=== PATIENT | female | born 1955 | race Caucasian/White ===

== ENCOUNTER 2017-03-26 20:17 | Outpatient (CLI) | payer MEDICARE, OTHER | END 2017-03-27 07:00 | disposition home or self-care (01) | LOC: SLEEP 20:17 | PROVIDERS: ATTEND Family Medicine | DX: G47.33 Obstructive sleep apnea (adult) (pediatric) (principal); I48.0 Paroxysmal atrial fibrillation; G47.61 Periodic limb movement disorder | CPT/HCPCS: 95811 ==

== ENCOUNTER 2019-02-15 17:26 | Emergency (ER) | payer MEDICARE, OTHER ==
[~2019-02-15] VITALS: Ht 167.6 cm; Wt 75.7 kg
[2019-02-15] MEDS ORDERED: Cinnamon (17:50)
[2019-02-15] MEDS ORDERED: DILT240C53 (17:50)
[2019-02-15] MEDS ORDERED: DULO60CA59 (17:50)
[2019-02-15] MEDS ORDERED: MONT10TA24 (17:50)
[2019-02-15] MEDS ORDERED: LTH450TCR (17:50)
[2019-02-15] MEDS ORDERED: Calcium (17:50)
[2019-02-15] MEDS ORDERED: HYDR25TA4 (17:50)
[2019-02-15] MEDS ORDERED: ASPI-999 PO (17:50)
[2019-02-15] MEDS ORDERED: LORazepam INJ 2 MG/ML (ATIVAN) VIAL IVP STA (17:51)
[2019-02-15] MEDS ORDERED: ZOLP10TA5 (17:51)
[2019-02-15] MEDS ORDERED: ALPR0.5T7 (17:51)
[2019-02-15 18:03] LABS: BASOPHILS % (AUTO) 1 % (0-10); EOSINOPHILS % (AUTO) 5 % (0-10); HEMATOCRIT 36 % (35-52); HEMOGLOBIN 11.4 G/DL (11.5-16.0); LYMPHOCYTES % (AUTO) 24 % (12-44); MEAN CORPUSCULAR HEMOGLOBIN 29 PG (25-34); MEAN CORPUSCULAR HGB CONC 32 G/DL (32-36); MEAN CORPUSCULAR VOLUME 89 FL (80-99); MEAN PLATELET VOLUME 9.4 FL (7.4-10.4); MONOCYTES % (AUTO) 7 % (0-12); NEUTROPHILS # (AUTO) 8.2 X 10^3 (1.8-7.8); NEUTROPHILS % (AUTO) 63 % (42-75); PLATELET COUNT 401 10^3/uL (130-400); RED CELL DISTRIBUTION WIDTH 14.5 % (10.0-14.5)
[2019-02-15 18:04] LABS: BASOPHILS # (AUTO) 0.1 10^3/uL (0.0-0.1); EOSINOPHILS # (AUTO) 0.6 10^3/uL (0.0-0.3); LYMPHOCYTES # (AUTO) 3.2 X 10^3 (1.0-4.0); MONOCYTES # (AUTO) 0.9 X 10^3 (0.0-1.0)
--- NOTE | 2019-02-15 18:04 | ED General ---
General Chief Complaint: General Problems/Pain Stated Complaint: NAUSEA; HEADACHE; WEAKNESS Source of Information: Patient, Spouse History of Present Illness Date Seen by Provider: Feb 15, 2019 Time Seen by Provider: 17:33 Initial Comments 63-year-old female presenting with complaints of generalized shaking and feeling anxious. She also has nausea and a headache. She feels weak all over. She states that she has had this sensation off and on for the last few days. She has been having weakness and shaking at times intermittently and it seems to be worse with certain medications. She recently was switched to Cymbalta from Wellbutrin thinking that the medication was causing some of the shaking. However today the shaking was worse and she was feeling like her insides were shaking as well so her brought her to the walk-in clinic to be evaluated. They sent her to the emergency department to have further testing and evaluation. She denies any actual vomiting. She does feel queasy and nauseated at times. Allergies and Home Medications Allergies Coded Allergies: lisinopril (Unverified Adverse Reaction, Mild, cough, 02/15/19) paroxetine (Unverified Adverse Reaction, Unknown, nervous/shaking, 02/15/19) Home Medications Aspirin 81 Mg Tab.chew, 81 MG PO DAILY, (Reported) Cephalexin 500 Mg Tablet, 500 MG PO TID Prescribed by: ROSY ROSARIO on 02/15/19 1901 Patient Home Medication List Home Medication List Reviewed: Yes Review of Systems Review of Systems Constitutional: No chills; dizziness; No fever; malaise, weakness, other (roxanne diaz all over) EENTM: No blurred vision, No double vision, No vision loss Respiratory: No cough, No dyspnea on exertion, No short of breath Cardiovascular: palpitations Gastrointestinal: nausea; No vomiting Genitourinary: No dysuria, No frequency Musculoskeletal: No back pain; muscle twitching (all over); No muscle weakness Psychiatric/Neurological: Anxiety, Headache, Tremors (all over her body) Hematologic/Lymphatic: No Symptoms Reported Immunological/Allergic: no symptoms reported Past Efrlrcg-Tuttrw-Lyhmpd Hx Past Med/Social Hx: Reviewed Nursing Past Med/Soc Hx Physical Exam Vital Signs Vital Signs - First Documented 02/15/19 17:30 Temp 97.2 Pulse 70 Resp 17 B/P (MAP) 159/87 (111) Pulse Ox 100 O2 Delivery Room Air Capillary Refill : Height, Weight, BMI Height: '" Weight: lbs. oz. kg; BMI Method: General Appearance: WD/WN, Anxious HEENT: PERRL/EOMI, Normal ENT Inspection, Pharynx Normal Neck: Full Range of Motion, Normal Inspection, Non Tender, Supple Respiratory: Chest Non Tender, Lungs Clear, Normal Breath Sounds, No Accessory Muscle Use, No Respiratory Distress Cardiovascular: Regular Rate, Rhythm, Normal Peripheral Pulses Gastrointestinal: Normal Bowel Sounds, No Pulsatile Mass, Non Tender, Soft Extremity: Normal Capillary Refill, Normal Inspection, Normal Range of Motion, Non Tender, No Calf Tenderness, No Pedal Edema Neurologic/Psychiatric: Alert, Oriented x3, No Motor/Sensory Deficits, 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, Other (anxious and shaking all over) Skin: Normal Color, Warm/Dry Progress/Results/Core Measures Suspected Sepsis SIRS Temperature: Pulse: Respiratory Rate: Laboratory Tests 02/15/19 17:40: White Blood Count 13.0H Blood Pressure / Mean: Laboratory Tests 02/15/19 17:40: Creatinine 0.96, Platelet Count 401H, Total Bilirubin 0.3 Results/Orders Lab Results Laboratory Tests Test 02/15/19 17:40 02/15/19 18:00 Range/Units White Blood Count 13.0 H 4.3-11.0 10^3/uL Red Blood Count 3.99 L 4.35-5.85 10^6/uL Hemoglobin 11.4 L 11.5-16.0 G/DL Hematocrit 36 35-52 % Mean Corpuscular Volume 89 80-99 FL Mean Corpuscular Hemoglobin 29 25-34 PG Mean Corpuscular Hemoglobin Concent 32 32-36 G/DL Red Cell Distribution Width 14.5 10.0-14.5 % Platelet Count 401 H 130-400 10^3/uL Mean Platelet Volume 9.4 7.4-10.4 FL Neutrophils (%) (Auto) 63 42-75 % Lymphocytes (%) (Auto) 24 12-44 % Monocytes (%) (Auto) 7 0-12 % Eosinophils (%) (Auto) 5 0-10 % Basophils (%) (Auto) 1 0-10 % Neutrophils # (Auto) 8.2 H 1.8-7.8 X 10^3 Lymphocytes # (Auto) 3.2 1.0-4.0 X 10^3 Monocytes # (Auto) 0.9 0.0-1.0 X 10^3 Eosinophils # (Auto) 0.6 H 0.0-0.3 10^3/uL Basophils # (Auto) 0.1 0.0-0.1 10^3/uL Sodium Level 141 135-145 MMOL/L Potassium Level 3.1 L 3.6-5.0 MMOL/L Chloride Level 101 98-107 MMOL/L Carbon Dioxide Level 24 21-32 MMOL/L Anion Gap 16 H 5-14 MMOL/L Blood Urea Nitrogen 10 7-18 MG/DL Creatinine 0.96 0.60-1.30 MG/DL Estimat Glomerular Filtration Rate 59 BUN/Creatinine Ratio 10 Glucose Level 106 H 70-105 MG/DL Calcium Level 10.5 H 8.5-10.1 MG/DL Corrected Calcium 10.3 H 8.5-10.1 MG/DL Total Bilirubin 0.3 0.1-1.0 MG/DL Aspartate Amino Transf (AST/SGOT) 20 5-34 U/L Alanine Aminotransferase (ALT/SGPT) 19 0-55 U/L Alkaline Phosphatase 125 40-136 U/L Total Protein 7.3 6.4-8.2 GM/DL Albumin 4.3 3.2-4.5 GM/DL Urine Color PALE YELLOW Urine Clarity CLEAR Urine pH 7.0 5-9 Urine Specific [place] <=1.005 1.016-1.022 Urine Protein NEGATIVE NEGATIVE Urine Glucose (UA) NEGATIVE NEGATIVE Urine Ketones NEGATIVE NEGATIVE Urine Nitrite POSITIVE H NEGATIVE Urine Bilirubin NEGATIVE NEGATIVE Urine Urobilinogen 0.2 NORMAL MG/DL Urine Leukocyte Esterase 1+ H NEGATIVE Urine RBC (Auto) NEGATIVE NEGATIVE Urine RBC NONE /HPF Urine WBC 2-5 /HPF Urine Squamous Epithelial Cells 5-10 /HPF Urine Crystals NONE /LPF Urine Bacteria LARGE H /HPF Urine Casts NONE /LPF Urine Mucus NONE /LPF Urine Culture Indicated YES My Orders Orders - ROSY ROSARIO MD Ua Culture If Indicated (02/15/19 17:51) Cbc With Automated Diff (02/15/19 17:51) Comprehensive Metabolic Panel (02/15/19 17:51) Ed Iv/Invasive Line Start (02/15/19 17:51) Monitor-Rhythm Ecg Trace Only (02/15/19 17:51) Lorazepam Injection (Ativan Injection) (02/15/19 17:51) [place] Level (02/15/19 17:51) Urine Culture (02/15/19 18:00) Ceftriaxone For Iv Use (Rocephin For I (02/15/19 19:00) Medications Given in ED Current Medications Medications Dose Ordered Sig/Matthew Route Start Time Stop Time Status Last Admin Dose Admin Ceftriaxone Sodium 1000 mg/ Sterile Water 10 ml @ 200 mls/hr ONCE ONCE IV 02/15/19 19:00 02/15/19 19:02 DC 02/15/19 19:08 200 MLS/HR Vital Signs/I&O 02/15/19 02/15/19 17:30 19:14 Temp 97.2 97.8 Pulse 70 80 Resp 17 16 B/P (MAP) 159/87 (111) 153/75 (101) Pulse Ox 100 97 O2 Delivery Room Air Room Air 02/16/19 00:00 Intake Total 10 ml Balance 10 ml Capillary Refill : Progress Note #1: Progress Note Will check basic labs and try giving a dose of lorazepam to see if that helps her symptoms. Progress Note #2: Progress Note labs show elevated WBC count, chemistry is stable, UA shows signs of UTI. Pt feeling better after treatment in the ED when reviewed results with pt and family. Treat with rocephin 1 gm IV for UTI and follow that up with keflex to avoid interaction with her other medicines. Urine culture is pending. Encourage fluids and rest at home. follow up with clinic for continued concerns Departure Impression Primary Impression: Cystitis without hematuria Additional Impressions: Tremor Anxiety Disposition: 01 HOME, SELF-CARE Condition: Stable Departure-Patient Inst. Decision time for Depature: 18:59 Referrals: TARUN LANGLEY MD (PCP/Family) Primary Care Physician Patient Instructions: Urinary Tract Infection, Adult (DC), Anxiety, Adult (DC), Tremor Add. Discharge Instructions: Stay well hydrated and get plenty of rest Follow up with Dr. Langley in clinic. Take the antibiotics until gone. All discharge instructions reviewed with patient and/or family. Voiced understanding. Scripts Cephalexin (Cephalexin) 500 Mg Tablet 500 MG PO TID for UTI for 10 Days, #30 TAB 0 Refills Prov: ROSY ROSARIO MD 02/15/19 ROSY ROSARIO MD Feb 15, 2019 18:04
[2019-02-15 18:14] LABS: CALCIUM 10.5 MG/DL (8.5-10.1); CREATININE SERUM 0.96 MG/DL (0.60-1.30); POTASSIUM 3.1 MMOL/L (3.6-5.0)
[2019-02-15 18:15] LABS: ALBUMIN 4.3 GM/DL (3.2-4.5); BILIRUBIN,TOTAL 0.3 MG/DL (0.1-1.0); TOTAL PROTEIN 7.3 GM/DL (6.4-8.2)
[2019-02-15 18:20] LABS: BACTERIA,URINE LARGE /HPF; BILIRUBIN,URINE NEGATIVE (NEGATIVE); CLARITY,URINE CLEAR; COLOR,URINE PALE YELLOW; GLUCOSE, URINE (UA) NEGATIVE (NEGATIVE); KETONES,URINE NEGATIVE (NEGATIVE); LEUKOCYTE ESTERASE ,URINE 1+ (NEGATIVE); NITRITE,URINE POSITIVE (NEGATIVE); PROTEIN,URINE NEGATIVE (NEGATIVE); UROBILINOGEN,URINE 0.2 MG/DL (NORMAL)
[2019-02-15] MEDS ORDERED: cefTRIAXone FOR IV USE 1,000 MG in WATER (STERILE) FOR INJECTION 10 ML IV ONE (19:00)
--- NOTE | 2019-02-15 19:00 | NUR ---
Report to Viry MOISE.
[2019-02-15] MEDS ORDERED: CEPH500T PO (19:01)
[2019-02-15 19:14] VITALS: BP 153/75
== END 2019-02-15 19:36 | disposition home or self-care (01) ==
LOC: EDUNIT# 17:26 → ER FS 17:27
DX: N30.90 Cystitis, unspecified without hematuria (principal); F41.9 Anxiety disorder, unspecified; R25.1 Tremor, unspecified; Z88.8 Allergy status to other drugs, medicaments and biological substances; Z79.82 Long term (current) use of aspirin
CPT/HCPCS: 36415; 80053; 80178; 81000; 85025; 87088; 93041

== ENCOUNTER 2019-05-23 19:04 | Emergency (ER) | payer MEDICARE, OTHER ==
[~2019-05-23] VITALS: Ht 167 cm; Wt 81.0 kg
[~2019-05-23 19:04] MED LIST: ALPR0.5T7; ASPI-999 PO; CEPH500T PO; Calcium; Cinnamon; DILT240C53; DULO60CA59; HYDR25TA4; LTH450TCR; MONT10TA24; ZOLP10TA5
--- NOTE | 2019-05-23 19:19 | ED Lower Extremity ---
General Stated Complaint: RT FOOT INJ - FALL Source: patient Exam Limitations: no limitations History of Present Illness Date Seen by Provider: May 23, 2019 Time Seen by Provider: 19:08 Initial Comments The patient is a pleasant 64-year-old female who states that she twisted her foot and fell walking down some stairs. She has pain over the fourth and fifth metatarsals of the right foot as well as some bruising. She did feel a snap or pop and now has significant pain when trying to weight-bear. She denies any other complaints and did not hit her head or lose consciousness. Onset: just prior to arrival Severity: moderate Pain/Injury Location: right foot Method of Injury: twisted Modifying Factors: Improves With Movement (makes it worse) Allergies and Home Medications Allergies Coded Allergies: lisinopril (Unverified Adverse Reaction, Mild, cough, 02/15/19) paroxetine (Unverified Adverse Reaction, Unknown, nervous/shaking, 02/15/19) Home Medications Aspirin 81 Mg Tab.chew, 81 MG PO DAILY, (Reported) Cephalexin 500 Mg Tablet, 500 MG PO TID Prescribed by: ROSY ROSARIO on 02/15/19 1901 Patient Home Medication List Home Medication List Reviewed: Yes Review of Systems Constitutional: no symptoms reported EENTM: no symptoms reported Respiratory: no symptoms reported Cardiovascular: no symptoms reported Gastrointestinal: no symptoms reported Genitourinary: no symptoms reported Musculoskeletal: joint pain (right lateal foot pain/bruising) Skin: no symptoms reported Psychiatric/Neurological: No Symptoms Reported All Other Systems Reviewed Negative Unless Noted: Yes Past Hdgepat-Odhctk-Qtpspo Hx Past Med/Social Hx: Reviewed Nursing Past Med/Soc Hx Patient Social History Recent Hopitalizations: No Seasonal Allergies Seasonal Allergies: Yes Past Medical History Surgeries: Yes (Shoulder, Bladder pin-up) Nose, Orthopedic Respiratory: Yes (Hx sleep study with apnea noted) Sleep Apnea Currently Using CPAP: Yes Cardiac: Yes (Essential HTN on Cartia and HCTZ) Hypertension 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 oz. 75.136802dg; BMI Method:Stated General Appearance: WD/WN, no apparent distress HEENT: PERRL/EOMI, pharynx normal Neck: non-tender, full range of motion, supple Cardiovascular: regular rate, rhythm, no JVD Respiratory: chest non-tender, normal breath sounds, no accessory muscle use Hips: bilateral hip non-tender, bilateral hip normal inspection, bilateral hip normal range of motion Legs: bilateral leg non-tender, bilateral leg normal inspection, bilateral leg normal range of motion Knees: bilateral knee non-tender, bilateral knee normal inspection, bilateral knee normal range of motion Ankles: bilateral ankle non-tender, bilateral ankle normal inspection, bilateral ankle normal range of motion Feet: right foot bone tenderness (right 4th metatarsal), right foot ecchymosis, right foot swelling 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 The patient will be given crutches and an orthopedic boot. She has also been given instructions on obtaining a medical scooter. Patient given orthopedics for follow-up. She is stable for discharge at this time. Departure Impression Primary Impression: Fracture of fifth metatarsal bone of right foot Disposition: 01 HOME, SELF-CARE Condition: Stable Departure-Patient Inst. Decision time for Depature: 19:38 Referrals: TARUN LANGLEY MD (PCP/Family) Primary Care Physician Patient Instructions: Foot Fracture (DC) Add. Discharge Instructions: Take the prescribed medication as directed. Return to the emergency Department immediately for new or worsening symptoms. Follow-up with orthopedics within the next 1-2 days. Use the crutches and boot provided. You may also want to obtain a medical scooter to help you get around. Scripts Hydrocodone Bit/Acetaminophen (Hydrocodone/Acetaminophen 5/325mg Tablet) 1 Tab Tab 1-2 EACH PO Q6H PRN for PAIN-MODERATE MDD 10 for 5 Days, #15 TAB 0 Refills Prov: MAYURI PRASAD DO 05/23/19 MAYURI PRASAD DO May 23, 2019 19:19 POS
--- NOTE | 2019-05-23 19:32 | Diagnostic Imaging Report ---
CLINICAL HISTORY: Fell off a step. Right foot pain. COMPARISON: None TECHNIQUE: 3 views of the right foot. FINDINGS: An acute comminuted fracture is seen involving the distal diaphysis of the right 5th metatarsal. No evidence of intra-articular extension is seen. No other fractures are seen in the right foot. Alignment of the right foot is anatomic. Soft tissue edema is seen along the lateral aspect of the right foot in the area of the comminuted fracture. IMPRESSION: 1. Acute comminuted fracture involving the distal diaphysis of the right 5th metatarsal without intra-articular extension. Associated soft tissue edema is noted. Dictated by: Dictated on workstation # [id number]
[2019-05-23] MEDS ORDERED: ACHD5005 PO (19:39)
[2019-05-23 19:59] VITALS: BP 135/64
[2019-05-23] MEDS ORDERED: RX-HYDROCODONE/APAP 5/325 MG #4 TAB PK PO PRN (20:00)
== END 2019-05-23 19:59 | disposition home or self-care (01) ==
LOC: EDUNIT# 19:04 → ER FS 19:05
DX: S92.351A Displaced fracture of fifth metatarsal bone, right foot, initial encounter for closed fracture (principal); I10 Essential (primary) hypertension; G47.30 Sleep apnea, unspecified; F41.9 Anxiety disorder, unspecified; F32.9 Major depressive disorder, single episode, unspecified; Z99.89 Dependence on other enabling machines and devices; Z90.710 Acquired absence of both cervix and uterus; Z79.82 Long term (current) use of aspirin; Z88.8 Allergy status to other drugs, medicaments and biological substances; W10.9XXA Fall (on) (from) unspecified stairs and steps, initial encounter; X50.1XXA Overexertion from prolonged static or awkward postures, initial encounter
CPT/HCPCS: 73630

== ENCOUNTER 2019-09-01 22:38 | Emergency (ER) | payer MEDICARE, OTHER ==
[~2019-09-01] VITALS: Ht 165.1 cm; Wt 75.8 kg
[~2019-09-01 22:38] MED LIST changes: +ACHD5005 PO; -MONT10TA24; +MONT10TA26
--- NOTE | 2019-09-01 23:11 | ED Neurological Problem ---
General Chief Complaint: Neurological Problems Stated Complaint: RIGHT HAND/ARM NUMB/TINGLING,MOUTH,FOOT,LEG Nursing Triage Note: pt states right sided tingling started this morning around 0800, co to mouth, hand, leg, and foot, no neurologic deficits. a/o x 4, maged to command, ambulated without difficulty Nursing Sepsis Screen: No Definite Risk Source: patient, family Exam Limitations: no limitations History of Present Illness Date Seen by Provider: Sep 01, 2019 Time Seen by Provider: 23:00 Initial Comments Patient presents with onset of tingling in her right hand the right side of her face and her leg occurring intermittently today since about 8 o'clock this curtis diaz. Patient admits to having no symptoms on arrival to the ER tonight as all of the tingling resolved. she's had 3 episodes occur today of the right-sided tingling lasting less than 1 minute with no associated weakness or pain. Denies headache, fever or chills, recent illness, chest pain or shortness of air. Denies history of stroke or clotting disorder. Takes an 81mg ASA daily. Allergies and Home Medications Allergies Coded Allergies: lisinopril (Unverified Adverse Reaction, Mild, cough, 02/15/19) paroxetine (Unverified Adverse Reaction, Unknown, nervous/shaking, ) Home Medications Aspirin 81 Mg Tab.chew, 81 MG PO DAILY, (Reported) Cephalexin 500 Mg Tablet, 500 MG PO TID Prescribed by: ROSY ROSARIO on 02/15/191900 Hydrocodone Bit/Acetaminophen 1 Tab Tab, 1-2 EACH PO Q6H PRN for PAIN-MODERATE Prescribed by: MAYURI PRASAD on 05/23/191938 Patient Home Medication List Home Medication List Reviewed: Yes Review of Systems Review of Systems Constitutional: see HPI; No chills, No diaphoresis, No dizziness, No fever, No malaise, No weakness Eyes: Denies Blindness, Denies Blurred Vision Ears, Nose, Mouth, Throat: no symptoms reported Respiratory: no symptoms reported; No dyspnea on exertion, No phlegm, No short of breath Cardiovascular: No chest pain, No palpitations, No syncope Gastrointestinal: No abdominal pain, No loss of appetite, No nausea, No vomiting Musculoskeletal: No back pain, No joint pain, No muscle pain, No muscle stiffness, No muscle twitching, No muscle weakness, No neck pain Skin: No change in color, No lesions, No lumps, No pruritus, No rash Psychiatric/Neurological: Denies Anxiety, Denies Depressed, Denies Emotional Problems, Denies Headache, Denies Numbness; Tingling; Denies Tonic Clonic Sei zures, Denies Unable to Move Lower Ext, Denies Unable to Move Upper Ext, Denies Weakness Past Mmeyujj-Espqjb-Szvnat Hx Past Med/Social Hx: Reviewed Nursing Past Med/Soc Hx Patient Social History Alcohol Use: Denies Use Recreational Drug Use: No Smoking Status: Never a Smoker Recent Foreign Travel: No Contact w/Someone Who Travel: No Recent Infectious Disease Expo: No Recent Hopitalizations: No Physical Abuse: No Sexual Abuse: No Mistreated: No Fear: No Seasonal Allergies Seasonal Allergies: Yes Past Medical History Surgeries: Yes (Shoulder, Bladder pin-up) Hysterectomy, Nose, Orthopedic, Tubal Ligation Respiratory: Yes (Hx sleep study with apnea noted) Sleep Apnea Currently Using CPAP: Yes Cardiac: Yes (Essential HTN on Cartia and HCTZ) Hypertension 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 oz. 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, no motor/sensory deficits, alert, normal mood/affect, oriented x 3; No motor weakness, No sensory deficit Crainal Nerves: normal hearing, normal speech, PERRL; No abnormal speech, No facial asymmetry, No facial droop, No facial paresthesias, No facial weakness, No gaze palsy, No hearing deficit (R), No hearing deficit (L), No tongue deviation to R, No tongue deviation to L Coordination/Gait: normal finger to nose, normal gait, negative Romberg's sign Motor/Sensory: no motor deficit, no sensory deficit, no pronator drift; No sensory deficit, No weak motor strength RUE, No weak motor strength LUE, No weak motor strength RLE, No weak motor strength LLE Skin: normal color, warm/dry Stroke NIH Stroke Scale Assessment Select: Initial Level of Consciousness: 0=Alert (0), Level of Consciousness- Questions: 0=Answers both month/age (0), LOC Commands: 0=Performs both tasks (0), Gaze: Normal (0), Visual Zuniga: 0=No visual loss (0), Facial Movement (Facial Paresis): 0=Normal symmetrical mnt (0), Motor Function-Arms Right: 0=No drift (0), Motor Function-Arms Left: 0=No drift (0), Motor Function-Legs Right: 0=No drift (0), Motor Function-Legs Left: 0=No drift (0), Limb Ataxia: 0=Absent (0), Sensory: 0=Normal:no loss (0), Best Language: 0=No aphasia (0), Dysarthria: 0=Normal (0), Extinction & Inattention: 0=No abnormality (0), Total: 0 Progress/Results/Core Measures Results/Orders Lab Results Laboratory Tests Test 09/01/19 23:05 Range/Units White Blood Count 12.8 H 4.3-11.0 10^3/uL Red Blood Count 4.19 L 4.35-5.85 10^6/uL Hemoglobin 12.0 11.5-16.0 G/DL Hematocrit 36 35-52 % Mean Corpuscular Volume 86 80-99 FL Mean Corpuscular Hemoglobin 29 25-34 PG Mean Corpuscular Hemoglobin Concent 33 32-36 G/DL Red Cell Distribution Width 13.3 10.0-14.5 % Platelet Count 416 H 130-400 10^3/uL Mean Platelet Volume 9.1 7.4-10.4 FL Neutrophils (%) (Auto) 73 42-75 % Lymphocytes (%) (Auto) 20 12-44 % Monocytes (%) (Auto) 6 0-12 % Eosinophils (%) (Auto) 0 0-10 % Basophils (%) (Auto) 0 0-10 % Neutrophils # (Auto) 9.4 H 1.8-7.8 X 10^3 Lymphocytes # (Auto) 2.6 1.0-4.0 X 10^3 Monocytes # (Auto) 0.7 0.0-1.0 X 10^3 Eosinophils # (Auto) 0.0 0.0-0.3 10^3/uL Basophils # (Auto) 0.0 0.0-0.1 10^3/uL Sodium Level 138 135-145 MMOL/L Potassium Level 3.6 3.6-5.0 MMOL/L Chloride Level 100 98-107 MMOL/L Carbon Dioxide Level 24 21-32 MMOL/L Anion Gap 14 5-14 MMOL/L Blood Urea Nitrogen 20 H 7-18 MG/DL Creatinine 1.11 0.60-1.30 MG/DL Estimat Glomerular Filtration Rate 49 BUN/Creatinine Ratio 18 Glucose Level 117 H 70-105 MG/DL Calcium Level 9.8 8.5-10.1 MG/DL Corrected Calcium 9.4 8.5-10.1 MG/DL Total Bilirubin < 0.2 0.1-1.0 MG/DL Aspartate Amino Transf (AST/SGOT) 20 5-34 U/L Alanine Aminotransferase (ALT/SGPT) 26 0-55 U/L Alkaline Phosphatase 107 40-136 U/L Total Protein 7.4 6.4-8.2 GM/DL Albumin 4.5 3.2-4.5 GM/DL My Orders Orders - ROVENSTINE,MOI L DO Ct Head Wo (09/01/19 23:05) Cbc With Automated Diff (09/01/19 23:05) Comprehensive Metabolic Panel (09/01/19 23:05) Vital Signs/I&O 09/01/19 09/01/19 22:53 23:47 Temp 36.6 Pulse 78 73 Resp 16 18 B/P (MAP) 170/77 (108) 136/70 Pulse Ox 96 98 O2 Delivery Room Air Room Air Blood Pressure Mean: 108 Diagnostic Imaging Diagonstic Imaging: CT Plain Films/CT/US/NM/MRI: head Comments No acute IC abnl. Departure Impression Primary Impression: Paresthesia of upper and lower extremity Disposition: HOME, SELF-CARE Condition: Stable Departure-Patient Inst. Decision time for Depature: 23:37 Referrals: TARUN WHITFIELD MD (PCP/Family) Primary Care Physician Patient Instructions: Paresthesias (DC) Add. Discharge Instructions: Call your Primary Care Doctor, Dr Whitfield on Wednesday to arrange for a follow up evaluation next week. Go to the nearest ER if onset of: difficulty speaking, weakness of either your face, arm or leg, severe headache. All discharge instructions reviewed with patient and/or family. Voiced understanding. MOI CONRAD DO Sep 01, 2019 23:11
[2019-09-01 23:17] LABS: BASOPHILS % (AUTO) 0 % (0-10); EOSINOPHILS % (AUTO) 0 % (0-10); HEMATOCRIT 36 % (35-52); LYMPHOCYTES # (AUTO) 2.6 X 10^3 (1.0-4.0); LYMPHOCYTES % (AUTO) 20 % (12-44); MEAN CORPUSCULAR HEMOGLOBIN 29 PG (25-34); MEAN CORPUSCULAR HGB CONC 33 G/DL (32-36); MEAN CORPUSCULAR VOLUME 86 FL (80-99); MEAN PLATELET VOLUME 9.1 FL (7.4-10.4); MONOCYTES # (AUTO) 0.7 X 10^3 (0.0-1.0); MONOCYTES % (AUTO) 6 % (0-12); NEUTROPHILS # (AUTO) 9.4 X 10^3 (1.8-7.8); NEUTROPHILS % (AUTO) 73 % (42-75); PLATELET COUNT 416 10^3/uL (130-400); RED CELL DISTRIBUTION WIDTH 13.3 % (10.0-14.5); WHITE BLOOD COUNT 12.8 10^3/uL (4.3-11.0)
[2019-09-01 23:37] LABS: ALANINE AMINOTRANSFERASE 26 U/L (0-55); ALBUMIN 4.5 GM/DL (3.2-4.5); ALKALINE PHOSPHATASE 107 U/L (40-136); BILIRUBIN,TOTAL < 0.2 MG/DL (0.1-1.0); BUN/CREATININE RATIO 18; CALCIUM 9.8 MG/DL (8.5-10.1); CARBON DIOXIDE 24 MMOL/L (21-32); CHLORIDE 100 MMOL/L (98-107); CREATININE SERUM 1.11 MG/DL (0.60-1.30); GFR ESTIMATED 49; GLUCOSE 117 MG/DL (70-105); POTASSIUM 3.6 MMOL/L (3.6-5.0); SODIUM 138 MMOL/L (135-145); TOTAL PROTEIN 7.4 GM/DL (6.4-8.2)
[2019-09-01 23:47] VITALS: BP 136/70
--- NOTE | 2019-09-02 07:04 | Diagnostic Imaging Report ---
PROCEDURE: CT head without contrast. TECHNIQUE: Multiple contiguous axial images were obtained through the brain without the use of intravenous contrast. Auto Exposure Controls were utilized during the CT exam to meet ALARA standards for radiation dose reduction. INDICATION: Right-sided tingling involving mouth, hand, leg and foot. No prior examinations are available for comparison. FINDINGS: The ventricles and sulci are within normal limits. There is no hydrocephalus or cerebral edema. There is no midline shift or mass effect. There is no intracranial mass, hemorrhage, or extra-axial fluid collection. The visualized paranasal sinuses and mastoid air cells are clear. There are no regional areas of decreased attenuation appreciated to suggest an acute CVA. IMPRESSION: No acute intracranial abnormality. If there is high clinical concern for an acute CVA, further evaluation with MRI should be considered. Dictated by: Dictated on workstation # [id number]
--- OUTSIDE RECORDS SUMMARY | 2019-09-05 20:28 | XMS REPORT | Continuity of Care Document ---
Author Organization Unknown Address Unknown Phone Unavailable Allergies There is no data. Medications There is no data. Problems There is no data. Procedures There is no data. Results Test Result Range LITHIUM (ESKALITH(R)), SERUM - 03/20/19 12:30 LITHIUM 1.6 mmol/L 0.6-1.2 Encounters ACCT No. Visit Date/Time Discharge Status Pt. Type Provider Facility Loc./Unit Complaint [id number] 08/28/2019 14:40:00 08/28/2019 23:59: 59 CLS Outpatient SELF, TAURN [facility] [id number] 03/20/2019 10:15:00 Document Registration
== END 2019-09-01 23:47 | disposition home or self-care (01) ==
LOC: EDUNIT# 22:38 → ER FS 22:40
DX: R20.2 Paresthesia of skin (principal); I10 Essential (primary) hypertension; G47.30 Sleep apnea, unspecified; Z99.89 Dependence on other enabling machines and devices; Z88.8 Allergy status to other drugs, medicaments and biological substances; Z79.82 Long term (current) use of aspirin
CPT/HCPCS: 36415; 70450; 80053; 85025

== ENCOUNTER → 2019-09-07 | Outpatient (CLI) | payer MEDICARE, OTHER ==
[~2019-09-07] MED LIST changes: +GADOBUTROL 7.5 MMOL/7.5 ML (GADAVIST) VIAL IV ONE
--- NOTE | 2019-09-07 17:52 | Diagnostic Imaging Report ---
PROCEDURE: MR imaging of the brain with and without contrast. TECHNIQUE: Multiplanar, multisequence MR imaging of the brain was performed with and without contrast. INDICATION: Numbness to the right side of the face and numbness to the entire right side of the body for one week. COMPARISON STUDY: CT of the head from 09/01/2019. FINDINGS: Diffusion weighted images demonstrate a small area of diffusion restriction in the left thalamus. This corresponds to the area of T2 and FLAIR signal intensity consistent with a subacute infarct in this area. No mass effect, midline shift, hemorrhage or extra-axial fluid collections are present. Flow voids appear normal. 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 Dictated by: Dictated on workstation # [id number]
== END ==
LOC: RAD 16:34
PROVIDERS: ATTEND Family Medicine
DX: I63.9 Cerebral infarction, unspecified (principal)
CPT/HCPCS: 70553

== ENCOUNTER → 2019-09-08 | Outpatient (CLI) | payer MEDICARE, OTHER ==
[~2019-09-08] MED LIST changes: -GADOBUTROL 7.5 MMOL/7.5 ML (GADAVIST) VIAL IV ONE
--- NOTE | 2019-09-08 12:09 | Diagnostic Imaging Report ---
INDICATION: Back spasms with numbness and tingling in the right leg. TIME OF EXAM: 11:43 AM FINDINGS: Frontal and lateral views of the lumbar spine were obtained. There is mild right convexity lumbar scoliotic curvature. There is normal lordotic curvature. Postoperative changes posterior instrumented fusion is noted with vertical stabilization rods and pedicle screws transfixing the L5-S1 level. Hardware appears to be intact. Vertebral body heights are maintained. No acute compression fracture is seen. There is some degenerative disc disease L3-L4 level as well as L5-S1 level with disc space narrowing and marginal spurring. IMPRESSION: Scoliosis, lumbar spondylosis and postsurgical changes. No acute bony abnormality is detected. Dictated by: Dictated on workstation # [id number]
== END ==
LOC: RAD FS 11:33
PROVIDERS: ATTEND Family Medicine
DX: M41.86 Other forms of scoliosis, lumbar region (principal); M47.816 Spondylosis without myelopathy or radiculopathy, lumbar region; M62.830 Muscle spasm of back; Z98.1 Arthrodesis status
CPT/HCPCS: 72100

== ENCOUNTER → 2019-09-20 | Outpatient (CLI) | payer MEDICARE, OTHER ==
[~2019-09-20] MED LIST changes: +GADOBUTROL 7.5 MMOL/7.5 ML (GADAVIST) VIAL IV ONE
--- NOTE | 2019-09-20 09:41 | Diagnostic Imaging Report ---
CLINICAL INDICATION: Patient with low back pain and right groin pain. Patient had lumbar surgery in approximately 2012. EXAM: MRI of the lumbar spine performed without and with 6 cc of Gadavist IV contrast. Sagittal T2, sagittal T1, sagittal STIR, axial T1, axial T2, axial T1 post IV contrast, sagittal T1 post IV contrast, and sagittal T1 post IV contrast. COMPARISON: X-ray of the lumbar spine dated 09/08/2019. FINDINGS: There is no abnormal IV contrast enhancement seen on this exam. Again seen are postop changes with L5-S1 posterior lumbar interbody fusion. There is no paraspinal soft tissue fluid collection or significant paraspinal soft tissue fat stranding. There is a small amount of Modic type I degenerative signal change involving the L3-L4 endplate regions. There is dextroscoliosis of the lumbar spine. There is no acute lumbar spine fracture. The visualized portions of the distal thoracic spinal cord, conus medullaris, and cauda equina nerve roots are unremarkable. The conus medullaris tip is seen at the upper L1 vertebral body level. L1-L2: There is no significant disc bulge. There is mild bilateral facet arthropathy. There is no significant central spinal canal or neural foramen narrowing. L2-L3: There is a small disc bulge in the left foraminal/far left lateral region. There is minimal left neuroforaminal narrowing. There is no significant central canal or right neuroforaminal narrowing. There is mild bilateral facet arthropathy. L3-L4: There is diffuse disc bulge with disc protrusion/herniation posteriorly and into the foraminal regions bilaterally. There is moderate loss of intervertebral disc height and endplate irregularity. There is severe bilateral facet arthropathy. There is severe central canal stenosis and ligamentum flavum buckling. There is moderate to severe bilateral neuroforaminal narrowing. L4-L5: There is a mild diffuse disc bulge, severe right facet arthropathy/hypertrophy, and severe left facet arthropathy. There is mild to moderate central canal narrowing. There is ligamentum flavum buckling. There is moderate to severe bilateral neuroforaminal narrowing. L5-S1: There is noted that the intervertebral disc graft is in the right posterior aspect of the disc space region which causes some encroachment upon the right foraminal region. There is severe right neuroforaminal narrowing and mild left neuroforaminal narrowing. There is no significant central canal narrowing. There is bilateral facet arthropathy. IMPRESSION: 1. There is L5-S1 posterior lumbar body fusion. There is no abnormal IV contrast enhancement or fluid collections. 2. The L5-S1 disc graft is in the right posterior aspect of the disc space with concern for possible encroachment upon the right foraminal region causing severe right neuroforaminal narrowing. There may be a component of right facet arthropathy and disc spurs also in the right foraminal region, possibly contributing to the severe right L5-S1 foraminal stenosis. A CT scan of the lumbar spine would better evaluate. 3. There is severe L3-L4 central canal stenosis due to diffuse disc bulge, disc spurs, facet arthropathy, and ligamentum flavum buckling. 4. There is moderate to severe multilevel neuroforaminal narrowing, as described above. Dictated by: Dictated on workstation # [id number]
== END ==
LOC: RAD 07:45
PROVIDERS: ATTEND Nurse Practitioner
DX: I63.9 Cerebral infarction, unspecified (principal); M48.061 Spinal stenosis, lumbar region without neurogenic claudication; Z98.1 Arthrodesis status
CPT/HCPCS: 72158

== ENCOUNTER 2019-11-25 23:12 | Emergency (ER) | payer MEDICARE, OTHER ==
[~2019-11-25] VITALS: Ht 167.7 cm; Wt 81.4 kg
[~2019-11-25 23:12] MED LIST changes: -GADOBUTROL 7.5 MMOL/7.5 ML (GADAVIST) VIAL IV ONE
--- OUTSIDE RECORDS SUMMARY | 2019-11-25 23:19 | XMS REPORT | Continuity of Care Document ---
Author Organization Unknown Address Unknown Phone Unavailable Allergies Active Description Code Type Severity Reaction Onset Reported/Identified Relationship to Patient Clinical Status Yes lisinopril [id number] Drug Allerg y Mild cough 02/15/2019 Yes paroxetine [id number] Drug Allerg y Unknown nervous/shaking 02/15/2019 Medications There is no data. Problems Date Dx Coded Attending Type Code Diagnosis Diagnosed By 03/26/2017 TARUN LANGLEY MD, Ot G47.33 OBSTRUCTIVE SLEEP APNEA (ADULT) (PEDIATR 03/27/2017 TARUN LANGLEY MD, Ot G47.33 OBSTRUCTIVE SLEEP APNEA (ADULT) (PEDIATR 03/27/2017 TARUN LANGLEY MD Ot G47.61 PERIODIC LIMB MOVEMENT DISORDER 03/27/2017 TARUN LANGLEY MD Ot I48.0 PAROXYSMAL ATRIAL FIBRILLATION 04/02/2017 TARUN LANGLEY MD Ot G47.33 OBSTRUCTIVE SLEEP APNEA (ADULT) (PEDIATR 04/02/2017 TARUN LANGLEY MD Ot G47.61 PERIODIC LIMB MOVEMENT DISORDER 04/02/2017 TARUN LANGLEY MD Ot I48.0 PAROXYSMAL ATRIAL FIBRILLATION 02/15/2019 ROSY ROSARIO MD, Ot F41.9 ANXIETY DISORDER, UNSPECIFIED 02/15/2019 ROSY ROSARIO MD, Ot N30.9 0 CYSTITIS, UNSPECIFIED WITHOUT HEMATURIA 02/15/2019 ROSY ROSARIO MD Ot R11.0 NAUSEA 02/15/2019 ROSY ROSARIO MD, Ot R25.1 TREMOR, UNSPECIFIED 02/15/2019 ROSY ROSARIO MD, Ot Z79.8 2 LEASING COORDINATOR (CURRENT) USE OF ASPIRIN 02/15/2019 ROSY ROSARIO MD, Ot Z88.8 ALLERGY STATUS TO OT DRUG/MEDS/BIOL SUB 02/17/2019 ROSY ROSARIO MD, Ot F41.9 ANXIETY DISORDER, UNSPECIFIED 02/17/2019 ROSY ROSARIO MD, Ot N30.9 0 CYSTITIS, UNSPECIFIED WITHOUT HEMATURIA 02/17/2019 ROSY ROSARIO MD, Ot R11.0 NAUSEA 02/17/2019 ROSY ROSARIO MD Ot R25.1 TREMOR, UNSPECIFIED 02/17/2019 ROSY ROSARIO MD Ot Z79.8 2 GROUP HOME (CURRENT) USE OF ASPIRIN 02/17/2019 ROSY ROSARIO MD Ot Z88.8 ALLERGY STATUS TO OTH DRUG/MEDS/BIOL SUB 05/23/2019 OSMAR MESSINA DO Ot F32. 9 MAJOR DEPRESSIVE DISORDER, SINGLE EPISOD 05/23/2019 OSMAR MESSINA DO Ot F41. 9 ANXIETY DISORDER, UNSPECIFIED 05/23/2019 OSMAR MESSINA DO Ot G47. 30 SLEEP APNEA, UNSPECIFIED 05/23/2019 OSMAR MESSINA DO Ot I10 ESSENTIAL (PRIMARY) HYPERTENSION 05/23/2019 OSMAR MESSINA DO Ot M79.671 PAIN IN RIGHT FOOT 05/23/2019 OSMAR MESSINA DO Ot S92.351A DISP FX OF FIFTH METATARSAL BONE, RIGHT 05/23/2019 OSMAR MESSINA DO Ot W10.9XXA FALL (ON) (FROM) UNSPECIFIED STAIRS AND 05/23/2019 OSMAR MESSINA DO Ot X50.1XXA OVEREXERTION FROM PROLONGED STATIC OR AW 05/23/2019 OSMAR MESSINA DO Ot Z79. 82 GROUP HOME (CURRENT) USE OF ASPIRIN 05/23/2019 OSMAR MESSINA DO Ot Z88. 8 ALLERGY STATUS TO OTH DRUG/MEDS/BIOL SUB 05/23/2019 OSMAR MESSINA DO Ot Z90.710 ACQUIRED ABSENCE OF BOTH CERVIX AND UTER 05/23/2019 OSMAR MESSINA DO Ot Z99. 89 DEPENDENCE ON OTHER ENABLING MACHINES AN 05/29/2019 OSMAR MESSINA DO Ot F32. 9 MAJOR DEPRESSIVE DISORDER, SINGLE EPISOD 05/29/2019 OSMAR MESSINA DO Ot F41. 9 ANXIETY DISORDER, UNSPECIFIED 05/29/2019 OSMAR MESSINA DO Ot G47. 30 SLEEP APNEA, UNSPECIFIED 05/29/2019 OSMAR MESSINA DO Ot I10 ESSENTIAL (PRIMARY) HYPERTENSION 05/29/2019 OSMAR MESSINA DO Ot M79.671 PAIN IN RIGHT FOOT 05/29/2019 OSMAR MESSINA DO Ot S92.351A DISP FX OF FIFTH METATARSAL BONE, RIGHT 05/29/2019 OSMAR MESSINA DO Ot W10.9XXA FALL (ON) (FROM) UNSPECIFIED STAIRS AND 05/29/2019 OSMAR MESSINA DO Ot X50.1XXA OVEREXERTION FROM PROLONGED STATIC OR AW 05/29/2019 OSMAR MESSINA DO Ot Z79. 82 GROUP HOME (CURRENT) USE OF ASPIRIN 05/29/2019 OSMAR MESSINA DO Ot Z88. 8 ALLERGY STATUS TO OTH DRUG/MEDS/BIOL SUB 05/29/2019 OSMAR MESSINA DO Ot Z90.710 ACQUIRED ABSENCE OF BOTH CERVIX AND UTER 05/29/2019 OSMAR MESSINA DO Ot Z99. 89 DEPENDENCE ON OTHER ENABLING MACHINES AN 09/01/2019 ROVENSTINE DO, MOI Aguirre Ot G47.30 SLEEP APNEA, UNSPECIFIED 09/01/2019 ROVENSTINE DO, MOI L Ot I10 ESSENTIAL (PRIMARY) HYPERTENSION 09/01/2019 ROVENSTINE DO, MOI L Ot R20.2 PARESTHESIA OF SKIN 09/01/2019 ROVENSTINE DO, MOI L Ot Z79.82 LEASING COORDINATOR (CURRENT) USE OF ASPIRIN 09/01/2019 ROVENSTINE DO, MOI L Ot Z88.8 ALLERGY STATUS TO OTH DRUG/MEDS/BIOL SUB 09/01/2019 ROVENSTINE DO, MOI L Ot Z99.89 DEPENDENCE ON OTHER ENABLING MACHINES AN 09/07/2019 ROVENSTINE DO, MOI L Ot G47.30 SLEEP APNEA, UNSPECIFIED 09/07/2019 ROVENSTINE DO, MOI L Ot I10 ESSENTIAL (PRIMARY) HYPERTENSION 09/07/2019 ROVENSTINE DO, MOI L Ot R20.2 PARESTHESIA OF SKIN 09/07/2019 ROVENSTINE DO, MOI L Ot Z79.82 LEASING COORDINATOR (CURRENT) USE OF ASPIRIN 09/07/2019 ROVENSTINE DO, MOI L Ot Z88.8 ALLERGY STATUS TO OTH DRUG/MEDS/BIOL SUB 09/07/2019 ROVENSTINE DO, MOI L Ot Z99.89 DEPENDENCE ON OTHER ENABLING MACHINES AN 09/15/2019 SELF TARUN MCKINNON Ot I63.9 CEREBRAL INFARCTION, UNSPECIFIED 09/15/2019 SELF TARUN MCKINNON Ot M41.86 OTHER FORMS OF SCOLIOSIS, LUMBAR REGION 09/15/2019 TARUN LANGLEY MD Ot M47.81 6 SPONDYLOSIS W/O MYELOPATHY OR RADICULOPA 09/15/2019 SELF TARUN MCKINNON Ot M62.83 0 MUSCLE SPASM OF BACK 09/15/2019 SELF TARUN MCKINNON Ot Z98.1 ARTHRODESIS STATUS 09/19/2019 SELF TARUN MCKINNON Ot I63.9 CEREBRAL INFARCTION, UNSPECIFIED 09/19/2019 SELF TARUN MCKINNON Ot M41.86 OTHER FORMS OF SCOLIOSIS, LUMBAR REGION 09/19/2019 SELF TARUN MCKINNON Ot M47.81 6 SPONDYLOSIS W/O MYELOPATHY OR RADICULOPA 09/19/2019 SELF TARUN MCKINNON Ot M62.83 0 MUSCLE SPASM OF BACK 09/19/2019 SELF TARUN MCKINNON Ot Z98.1 ARTHRODESIS STATUS 09/19/2019 SELF TARUN MCKINNON Ot I63.9 CEREBRAL INFARCTION, UNSPECIFIED 09/19/2019 SELF TARUN MCKINNON Ot M41.86 OTHER FORMS OF SCOLIOSIS, LUMBAR REGION 09/19/2019 SELF TARUN MCKINNON Ot M47.81 6 SPONDYLOSIS W/O MYELOPATHY OR RADICULOPA 09/19/2019 SELF TARUN MCKINNON Ot M62.83 0 MUSCLE SPASM OF BACK 09/19/2019 SELF TARUN MCKINNON Ot Z98.1 ARTHRODESIS STATUS 09/20/2019 SELF TARUN MCKINNON Ot I63.9 CEREBRAL INFARCTION, UNSPECIFIED 09/20/2019 SELF TARUN MCKINNON Ot M41.86 OTHER FORMS OF SCOLIOSIS, LUMBAR REGION 09/20/2019 SELF TARUN MCKINNON Ot M47.81 6 SPONDYLOSIS W/O MYELOPATHY OR RADICULOPA 09/20/2019 SELF TARUN MCKINNON Ot M62.83 0 MUSCLE SPASM OF BACK 09/20/2019 SELF TARUN MCKINNON Ot Z98.1 ARTHRODESIS STATUS 09/20/2019 SELF TARUN MCKINNON Ot I63.9 CEREBRAL INFARCTION, UNSPECIFIED 09/20/2019 SELF TARUN MCKINNON Ot M41.86 OTHER FORMS OF SCOLIOSIS, LUMBAR REGION 09/20/2019 SELF TARUN MCKINNON Ot M47.81 6 SPONDYLOSIS W/O MYELOPATHY OR RADICULOPA 09/20/2019 SELF TARUN MCKINNON Ot M62.83 0 MUSCLE SPASM OF BACK 09/20/2019 SELF TARUN MCKINNON Ot Z98.1 ARTHRODESIS STATUS 09/20/2019 SELF TARUN MCKINNON Ot I63.9 CEREBRAL INFARCTION, UNSPECIFIED 09/20/2019 SELF ERICKA MCKINNONWELL Ot M41.86 OTHER FORMS OF SCOLIOSIS, LUMBAR REGION 09/20/2019 SELF TARUN MCKINNON Ot M47.81 6 SPONDYLOSIS W/O MYELOPATHY OR RADICULOPA 09/20/2019 SELF TARUN MCKINNON Ot M62.83 0 MUSCLE SPASM OF BACK 09/20/2019 SELF TARUN MCKINNON Ot Z98.1 ARTHRODESIS STATUS 09/21/2019 SELF TARUN MCKINNON Ot I63.9 CEREBRAL INFARCTION, UNSPECIFIED 09/21/2019 SELF TARUN MCKINNON Ot M41.86 OTHER FORMS OF SCOLIOSIS, LUMBAR REGION 09/21/2019 SELF TARUN MCKINNON Ot M47.81 6 SPONDYLOSIS W/O MYELOPATHY OR RADICULOPA 09/21/2019 SELF TARUN MCKINNON Ot M62.83 0 MUSCLE SPASM OF BACK 09/21/2019 SELF TARUN MCKINNON Ot Z98.1 ARTHRODESIS STATUS 09/21/2019 SELF TARUN MCKINNON Ot I63.9 CEREBRAL INFARCTION, UNSPECIFIED 09/21/2019 SELF TARUN MCKINNON Ot M41.86 OTHER FORMS OF SCOLIOSIS, LUMBAR REGION 09/21/2019 SELF TARUN MCKINNON Ot M47.81 6 SPONDYLOSIS W/O MYELOPATHY OR RADICULOPA 09/21/2019 SELF TARUN MCKINNON Ot M62.83 0 MUSCLE SPASM OF BACK 09/21/2019 SELF TARUN MCKINNON Ot Z98.1 ARTHRODESIS STATUS 09/21/2019 SELF TARUN MCKINNON Ot I63.9 CEREBRAL INFARCTION, UNSPECIFIED 09/21/2019 SELF TARUN MCKINNON Ot M41.86 OTHER FORMS OF SCOLIOSIS, LUMBAR REGION 09/21/2019 SELF TARUN MCKINNON Ot M47.81 6 SPONDYLOSIS W/O MYELOPATHY OR RADICULOPA 09/21/2019 SELF ERICKA MCKINNONWELL Ot M62.83 0 MUSCLE SPASM OF BACK 09/21/2019 SELF TARUN MCKINNON Ot Z98.1 ARTHRODESIS STATUS 09/21/2019 SELF TARUN MCKINNON Ot I63.9 CEREBRAL INFARCTION, UNSPECIFIED 09/21/2019 SELF TARUN MCKINNON Ot M41.86 OTHER FORMS OF SCOLIOSIS, LUMBAR REGION 09/21/2019 SELF TARUN MCKINNON Ot M47.81 6 SPONDYLOSIS W/O MYELOPATHY OR RADICULOPA 09/21/2019 SELF TARUN MCKINNON Ot M62.83 0 MUSCLE SPASM OF BACK 09/21/2019 SELF TARUN MCKINNON Ot Z98.1 ARTHRODESIS STATUS 09/22/2019 RALPH GAMEZ APRN Ot I63.9 CEREBRAL INFARCTION, UNSPECIFIED 09/22/2019 RALPH GAMEZ HOT DIP [employer]ATER Ot M48.061 SPINAL STENOSIS, LUMBAR REGION WITHOUT N 09/22/2019 RALPH GAMEZ HOT DIP PLATER Ot Z98.1 ARTHRODESIS STATUS 09/26/2019 RALPH GAMEZ APRN Ot I63.9 CEREBRAL INFARCTION, UNSPECIFIED 09/26/2019 RALPH GAMEZ HOT DIP PLATER Ot M48.061 SPINAL STENOSIS, LUMBAR REGION WITHOUT N 09/26/2019 RALPH GAMEZ HOT DIP PLATER Ot Z98.1 ARTHRODESIS STATUS 09/29/2019 SELF TARUN MCKINNON Ot I63.9 CEREBRAL INFARCTION, UNSPECIFIED 09/29/2019 SELF TARUN MCKINNON Ot M41.86 OTHER FORMS OF SCOLIOSIS, LUMBAR REGION 09/29/2019 SELF TARUN MCKINNON Ot M47.81 6 SPONDYLOSIS W/O MYELOPATHY OR RADICULOPA 09/29/2019 SELF TARUN MCKINNON Ot M62.83 0 MUSCLE SPASM OF BACK 09/29/2019 SELF TARUN MCKINNON Ot Z98.1 ARTHRODESIS STATUS 10/10/2019 RALPH GAMEZ APRN Ot I63.9 CEREBRAL INFARCTION, UNSPECIFIED 10/10/2019 RALPH GAMEZ APRN Ot M48.061 SPINAL STENOSIS, LUMBAR REGION WITHOUT N 10/10/2019 RALPH GAMEZ HOT DIP PLATER Ot Z98.1 ARTHRODESIS STATUS Procedures There is no data. Results Test Result Range Complete blood count (CBC) with automate d white blood cell (WBC) differential - 02/15/19 17:40 Blood leukocytes automated count (number/volume) 13.0 10*3/uL 4.3-11.0 Blood erythrocytes automated count (number/volume) 3.99 10*6/uL 4.35-5.85 Venous blood hemoglobin measurement (mass/volume) 11.4 g/dL 11.5-16.0 Blood hematocrit (volume fraction) 36 % 35-52 Automated erythrocyte mean corpuscular volume 89 [ foz_us] 80-99 Automated erythrocyte mean corpuscular h emoglobin (mass per erythrocyte) 29 pg 25-34 Automated erythrocyte mean corpuscular h emoglobin concentration measurement (mass/volume) 32 g/dL 32-36 Automated erythrocyte distribution width ratio 14. 5 % 10.0- 14.5 Automated blood platelet count (count/volume) 401 10*3/uL 130-400 Automated blood platelet mean volume measurement 9.4 [foz_us] 7.4-10.4 Automated blood neutrophils/100 leukocytes 63 % 42-75 Automated blood lymphocytes/100 leukocytes 24 % 12-44 Blood monocytes/100 leukocytes 7 % 0-12 Automated blood eosinophils/100 leukocytes 5 % 0-10 Automated blood basophils/100 leukocytes 1 % 0-10 Blood neutrophils automated count (number/volume) 8.2 10*3 1.8-7.8 Blood lymphocytes automated count (number/volume) 3.2 10*3 1.0-4.0 Blood monocytes automated count (number/volume) 0. 9 10*3 0.0-1.0 Automated eosinophil count 0.6 10*3/uL 0 .0-0.3 Automated blood basophil count (count/volume) 0.1 10*3/uL 0.0-0.1 Comprehensive metabolic panel - 02/15/19 17:40 Serum or plasma sodium measurement (moles/volume) 141 mmol/L 135-145 Serum or plasma potassium measurement (moles/volume) 3.1 mmol/L 3.6-5.0 Serum or plasma chloride measurement (moles/volume) 101 mmol/L 98-107 Carbon dioxide 24 mmol/L 21-32 Serum or plasma anion gap determination (moles/volume) 16 mmol/L 5-14 Serum or plasma urea nitrogen measurement (mass/volume ) 10 mg/dL 7-18 Serum or plasma creatinine measurement (mass/volume) 0.96 mg/dL 0.60-1.30 Serum or plasma urea nitrogen/creatinine mass ratio 10 NRG Serum or plasma creatinine measurement w ith calculation of estimated glomerular filtration rate 59 NRG Serum or plasma glucose measurement (mass/volume) 106 mg/dL 70-105 Serum or plasma calcium measurement (mass/volume) 10.5 mg/dL 8.5-10.1 Serum or plasma total bilirubin measurement (mass/volu me) 0.3 mg/dL 0.1-1.0 Serum or plasma alkaline phosphatase krysta surement (enzymatic activity/volume) 125 U/L 40-136 Serum or plasma aspartate aminotransfera se measurement (enzymatic activity/volume) 20 U/L 5-34 Serum or plasma alanine aminotransferase measurement (enzymatic activity/volume) 19 U/L 0-55 Serum or plasma protein measurement (mass/volume) 7.3 g/dL 6.4-8.2 Serum or plasma albumin measurement (mass/volume) 4.3 g/dL 3.2-4.5 CALCIUM CORRECTED 10.3 mg/dL 8.5-10.1 LITHIUM LEVEL - 02/15/19 17:40 Blood lithium measurement (moles/volume) 0.9 % 0.5-1.5 Complete urinalysis with reflex to cultu re - 02/15/19 18:00 Urine color determination PALE YELLOW N RG Urine clarity determination CLEAR NR G Urine pH measurement by test strip 7.0 5-9 Specific gravity of urine by test strip <= 1.016-1.022 Urine protein assay by test strip, semi-quantitative NEGATIVE NEGATIVE Urine glucose detection by automated test strip NE GATIVE NEGATIVE Erythrocytes detection in urine sediment by light micr oscopy NEGATIVE NEGATIVE Urine ketones detection by automated test strip NE GATIVE NEGATIVE Urine nitrite detection by test strip POSITIVE NEGATIVE Urine total bilirubin detection by test strip NEGA TIVE NEGATIVE Urine urobilinogen measurement by automated test strip (mass/volume) 0.2 mg/dL NORMAL Urine leukocyte esterase detection by dipstick 1+ NEGATIVE Automated urine sediment erythrocyte cou nt by microscopy (number/high power field) NONE NRG Automated urine sediment leukocyte count by microscopy (number/high power field) [HPF] NRG Bacteria detection in urine sediment by light microsco py LARGE NRG Squamous epithelial cells detection in u rine sediment by light microscopy 5-10 NRG Crystals detection in urine sediment by light microsco py NONE NRG Casts detection in urine sediment by light microscopy NONE NRG Mucus detection in urine sediment by light microscopy NONE NRG Complete urinalysis with reflex to culture YES NRG Bacterial urine culture - 02/15/19 18:00 Bacterial urine culture [id number] NRG COLONY COUNT >100,000/ML NRG FTX;REPORTABLE SUSCEPTIBILITY REPORTED 02/18/19 11: 30 NRG FREE TEXT ENTRY 2 ID REPORTED 02/18/19 8:30 NRG Dirithromycin susceptibility test by dis k diffusion - 02/15/19 18:00 Gentamicin susceptibility test by minimum inhibitory c oncentration > NRG Trimethoprim/sulfamethoxazole susceptibi lity test by minimum inhibitoryconcentration <= NRG Levofloxacin susceptibility test by minimum inhibitory concentration > NRG Ampicillin susceptibility test by minimum inhibitory c oncentration > NRG Cefazolin susceptibility test by minimum inhibitory co ncentration 2 NRG Ceftriaxone susceptibility test by minimum inhibitory concentration <= NRG Ciprofloxacin susceptibility test by minimum inhibitor y concentration > NRG Meropenem susceptibility test by minimum inhibitory co ncentration <= NRG Nitrofurantoin susceptibility test by mi nimum inhibitory concentration <= NRG Amoxicillin and clavulanate potassium susc FERN = NRG LITHIUM (ESKALITH(R)), SERUM - 03/20/19 12:30 LITHIUM 1.6 mmol/L 0.6-1.2 Complete blood count (CBC) with automate d white blood cell (WBC) differential - 09/01/19 23:05 Blood leukocytes automated count (number/volume) 12.8 10*3/uL 4.3-11.0 Blood erythrocytes automated count (number/volume) 4.19 10*6/uL 4.35-5.85 Venous blood hemoglobin measurement (mass/volume) 12.0 g/dL 11.5-16.0 Blood hematocrit (volume fraction) 36 % 35-52 Automated erythrocyte mean corpuscular volume 86 [ foz_us] 80-99 Automated erythrocyte mean corpuscular h emoglobin (mass per erythrocyte) 29 pg 25-34 Automated erythrocyte mean corpuscular h emoglobin concentration measurement (mass/volume) 33 g/dL 32-36 Automated erythrocyte distribution width ratio 13. 3 % 10.0- 14.5 Automated blood platelet count (count/volume) 416 10*3/uL 130-400 Automated blood platelet mean volume measurement 9.1 [foz_us] 7.4-10.4 Automated blood neutrophils/100 leukocytes 73 % 42-75 Automated blood lymphocytes/100 leukocytes 20 % 12-44 Blood monocytes/100 leukocytes 6 % 0-12 Automated blood eosinophils/100 leukocytes 0 % 0-10 Automated blood basophils/100 leukocytes 0 % 0-10 Blood neutrophils automated count (number/volume) 9.4 10*3 1.8-7.8 Blood lymphocytes automated count (number/volume) 2.6 10*3 1.0-4.0 Blood monocytes automated count (number/volume) 0. 7 10*3 0.0-1.0 Automated eosinophil count 0.0 10*3/uL 0 .0-0.3 Automated blood basophil count (count/volume) 0.0 10*3/uL 0.0-0.1 Comprehensive metabolic panel - 09/01/19 23:05 Serum or plasma sodium measurement (moles/volume) 138 mmol/L 135-145 Serum or plasma potassium measurement (moles/volume) 3.6 mmol/L 3.6-5.0 Serum or plasma chloride measurement (moles/volume) 100 mmol/L 98-107 Carbon dioxide 24 mmol/L 21-32 Serum or plasma anion gap determination (moles/volume) 14 mmol/L 5-14 Serum or plasma urea nitrogen measurement (mass/volume ) 20 mg/dL 7-18 Serum or plasma creatinine measurement (mass/volume) 1.11 mg/dL 0.60-1.30 Serum or plasma urea nitrogen/creatinine mass ratio 18 NRG Serum or plasma creatinine measurement w ith calculation of estimated glomerular filtration rate 49 NRG Serum or plasma glucose measurement (mass/volume) 117 mg/dL 70-105 Serum or plasma calcium measurement (mass/volume) 9.8 mg/dL 8.5-10.1 Serum or plasma total bilirubin measurement (mass/volu me) < mg/dL 0.1-1.0 Serum or plasma alkaline phosphatase krysta surement (enzymatic activity/volume) 107 U/L 40-136 Serum or plasma aspartate aminotransfera se measurement (enzymatic activity/volume) 20 U/L 5-34 Serum or plasma alanine aminotransferase measurement (enzymatic activity/volume) 26 U/L 0-55 Serum or plasma protein measurement (mass/volume) 7.4 g/dL 6.4-8.2 Serum or plasma albumin measurement (mass/volume) 4.5 g/dL 3.2-4.5 CALCIUM CORRECTED 9.4 mg/dL 8.5-10.1 LITHIUM (ESKALITH(R)), SERUM - 09/20/19 10:07 LITHIUM 0.9 mmol/L 0.6-1.2 Encounters ACCT No. Visit Date/Time Discharge Status Pt. Type Provider Facility Loc./Unit Complaint [id number] 09/15/2019 14:30:00 09/15/2019 23:59: 59 CLS Outpatient [facility] [id number] 09/20/2019 11:00:00 Document Registration [id number] 03/20/2019 10:15:00 Document Registration [id number] 09/20/2019 07:45:00 23:59:59 CLS Outpatient FRANCO, RALPH Dowd [employer] [facility] RAD CEREBRAL INFARC TION,LOW BACK PAIN [id number] 09/08/2019 11:33:00 23:59:59 CLS Outpatient SELF TARUN MCKINNON [facility] RAD FS M62.830 [id number] 09/07/2019 16:34:00 23:59:59 CLS Outpatient SELF TARUN MCKINNON [facility] RAD NUMBNESS [id number] 09/01/2019 22:40:00 23:47:00 DIS Emergency RAJIVENMOI ACUNA DO [facility] ER FS RIGHT HAND/ARM NUMB/TINGLING,MOUTH,FOOT,LEG [id number] 05/23/2019 19:05:00 19:59:00 DIS Emergency OSMAR MESSINA DO [facility] ER FS RT FOOT INJ - FALL [id number] 02/15/2019 17:27:00 019 19:36:00 DIS Emergency ROSY ROSARIO MD [facility] ER FS NAUSEA; HEADACHE; WEAKN ESS [id number] 03/26/2017 20:17:00 017 07:00:00 DIS Outpatient SELF TARUN MCKINNON [facility] SLEEP TONY [id number] 02/15/2019 17:46:00 Document Registration
--- OUTSIDE RECORDS SUMMARY | 2019-11-25 23:19 | XMS REPORT ---
Author Author Radha LANGLEY [facility] [place] [facility] Address [address] [place] [address] Care Team Providers Care Phytopathology Teacher Name Role Phone TARUN LANGLEY Unavailable PROBLEMS Type Condition ICD9-CM Code RZA81-NU Code Onset Dates Condition S tatus SNOMED Code Problem Chronic bilateral low back pain without sciatica M54.5 Sep, Active 139441982 Problem TONY on CPAP G47.33 Jul, Active 27419 009 Problem Migraine, unspecified, witho ut mention of intractable migraine without mention of status migrainosus G43.909 Active 55239234 Problem BARBA (dyspnea on exertion) R06.09 Aug, A ctive 12208910 Problem Irritable bowel syndrome K58.9 Activ e 51383228 Problem Organic insomnia, unspecified G47.00 Active 97543721 Problem Panic disorder without agoraphobia F41.0 Active 91336798 Problem HTN (hypertension) I10 Nov, Active 78087690 Problem Essential tremor G25.0 08 Jul, 2015 Active 434933994 Problem Seasonal allergic reaction J30.2 Act jay 454063363 Problem Thalamic infarction I63.9 Active 306656504 Problem Hyperventilation syndrome F45.8 Apr, A ctive 257761757 Problem Hypercholesteremia E78.00 Active 1 0308276 Problem Undersocialized conduct disorder, aggressive type, uns pecified F91.1 Active 25715023 Problem Situational mixed anxiety and depressive disorder F43.23 Active 457715173 Problem Obesity (BMI 30.0-34.9) E66.9 Active 614728286412168 Problem Atrial fibrillation, unspecified type I48.91 Active 77571028 Problem BMI 30.0-30.9,adult Z68.30 Active 637164249 ALLERGIES No Information ENCOUNTERS Encounter Location Date Diagnosis [facility] [address] [id number] [address] Sep, [facility] [place] [address] [id number] [place] [address] Sep, [facility] [place] [address] [id number] [place] [address] Sep, [facility] [place] [address] [facility] [id number] [place] [address] Aug, [facility] [place] [address] [facility] [id number] [place] [address] Aug, Hypercholesteremia E78.00 ; HTN (hypertension) I10 and Panic disorder without agoraphobia F41.0 [facility] [address] [facility] [id number] [address] [place] [address] Aug, [address] [id number] [address] Aug, Thalamic infarction I63.9 ; HTN (hypertension) I10 ; Situational mixed anxiety and depressive disorder F43.23 ; PAF (paroxysmal atrial fibrillation) I48.0 and TONY on CPAP G47.33 [facility] [address] [place] [address] [facility] [id number] [place] [address] Aug, [address] [id number], [place] [address] Aug, [place] [address] [id number] [address] Aug, [address] [id number], [place] [address] Aug, [facility] [address] [facility] [id number] [address] [place] [address] Aug, Back spasm M62.830 and Chron ic bilateral low back pain without sciatica M54.5 [facility] [address] [id number] [place] [address] Aug, Back spasm M62.[address] [id number] [place] [address] 13 Aug, 2019 Back spasm M62.[address] [id number] [address] 11 Aug, 2019 Numbness R20.0 ; Obesity (BM I 30.0-34.9) E66.9 and HTN (hypertension) I10 [facility] [address] [facility] [id number] 100[address] [place] [address] 09 Aug, [address] [id number], [place] [address] 02 Aug, 2019 Rash R21 and BMI 30.0-30.9,a dult Z68.30 [facility] [address] [id number], [place] [address] 05 Jul, 2019 Encounter for Medicare annua l wellness exam Z00.00 ; Atrial fibrillation, unspecified type I48.91 ; HTN (hypertension) I10 ; Encounter for immunization Z23 ; Essential tremor G25.0 and Obesity (BMI 30.0- 34.9) E66.9 [facility] [address] [id number], [place] [address] Jun, Influenza B J10.1 and Fever, unspecified fever cause R50.9 [facility] [address] [id number], [place] [address] Jun, Urticaria L50.[address] [id number], [place] [address] May, Screening mammogram, encount er for Z12.31 [facility] [address] [id number], [place] [address] May, [address] [id number], [place] [address] Mar, [facility] [address] [id number], [place] [address] Feb, [facility] [address] [id number] [place] [address] Feb, Acute non-recurrent maxillar y sinusitis J01.00 [facility] [place] [address] [id number] [place] [address] Feb, Fecal smearing R15.1 [facility] [place] [address] [id number] [place] [address] Feb, Atrial fibrillation, unspeci fied type I48.91 ; HTN (hypertension) I10 ; Situational mixed anxiety and depressive disorder F43.23 ; Dyspnea on exertion R06.09 and Encounter for immunization Z23 [facility] [place] [address] [id number] [place] [address] Jan, Hypokalemia E87.6 [facility] [address] [id number], [place] [address] Jan, Acute UTI N39.0 and Hypokale javier E87.6 [facility] [address] [id number], [place] [address] Jan, [facility] [address] [id number], [place] [address] Jan, HTN (hypertension) I10 ; Sit uational mixed anxiety and depressive disorder F43.23 and Screening mammogram, encounter for Z12.31 [facility] [place] [address] [id number], [place] [address] Nov, [facility] [address] [id number], [place] [address] October, Fecal smearing R15.1 and Sit uational mixed anxiety and depressive disorder F43.23 [facility] [place] [address] [id number] [place] [address] October, [facility] [place] [address] [id number], [place] [address] October, Seasonal allergic reaction J 30.2 [facility] [place] [address] [id number] [place] [address] Sep, [facility] [address] [id number] [place] [address] Sep, Post-nasal drainage R09.82 [facility] [address] [id number] [place] [address] Aug, Post-nasal drainage R09.82 [facility] [address] [id number] [place] [address] Jul, Post-nasal drainage R09.82 [facility] [address] [id number] [place] [address] Jul, Acute nasopharyngitis J00 [facility] [address] [facility] [id number] [address] [place] [address] May, [facility] [address] [id number] [address] [place] [address] May, [facility] [address] [id number] [address] [place] [address] May, [facility] [address] [id number] [address] [place] [address] May, [facility] [address] [id number] [address] [place] [address] Apr, [facility] [address] [id number] [address] [place] [address] Jan, [facility] [address] [id number] [address] [place] [address] Nov, IMMUNIZATIONS No Known Immunizations SOCIAL HISTORY Never Assessed REASON FOR VISIT med refill PLAN OF CARE VITAL SIGNS MEDICATIONS Medication Instructions Dosage Frequency Start Date End Date Duration S tatus Ipratropium [place] 0.03 % Nasally Twice a day 2 sprays in each nos tril 12h Jul, 30 day(s) Active RESULTS No Results PROCEDURES No Known procedures INSTRUCTIONS MEDICATIONS ADMINISTERED No Known Medications MEDICAL (GENERAL) HISTORY Type Description Date Medical History Essential tremor Medical History HTN (hypertension) Medical History Panic disorder without agoraphobia Medical History BRABA (dyspnea on exertion) Medical History Irritable bowel syndrome Medical History PAF (paroxysmal atrial fibrillation) Medical History TONY on CPAP Medical History Migraine, unspecified, witho ut mention of intractable migraine without mention of status migrainosus Medical History Chronic bilateral low back pain without sciatica Medical History Hyperventilation syndrome Medical History Undersocialized conduct disorder, aggres sive type, unspecified Medical History Organic insomnia, unspecified Medical History stroke Surgical History rotator cuff tear repair Surgical History septoplasty prior to Surgical History tubal ligation early Surgical History hysterectomy, total 2017 Surgical History spinal stenosis surgery 2012 Surgical History right foot screw and plate 05/2019 Hospitalization History pneumonia 10 years ago Hospitalization History dehydration Hospitalization History hysterectomy Hospitalization History spinal stenosis surgery
--- NOTE | 2019-11-25 23:45 | ED Syncope ---
General Chief Complaint: Dizziness/Syncope Stated Complaint: DIZZINESS/LOSS OF BALANCE Source of Information: Patient Exam Limitations: No Limitations History of Present Illness Date Seen by Provider: November 25, 2019 Time Seen by Provider: 23:40 Initial Comments Patient complains of getting up from a seated position 7:30 and feeling dizzy subjectively like she was going to fall without rotational sensation is lasted about 1 minute and she spontaneously recovered and felt good enough to go for walk after they were at some distance from the house she began having trouble managing to walk with weakness and incoordination of her legs and feeling like she was going to faint and passed out. She had a recent stroke approximately 2 months ago apparently has atrial fibrillation as a diagnosis early on aspirin xarelto, blood pressure medicine including beta jacob. Denies any history of bleeding disorders as is a definite change in her level of function Timing/Prior Episodes: Multiple Episodes Today, Recent History Symptoms Prior to Episode: None, Other (numb right arm) Precipitating Factors: None Loss of Consciousness: No Loss of Consciousness Current Symptoms: Other (trouble walking aliments) Allergies and Home Medications Allergies Coded Allergies: lisinopril (Unverified Adverse Reaction, Mild, cough, 02/15/19) paroxetine (Unverified Adverse Reaction, Unknown, nervous/shaking, 02/15/19) Home Medications Aspirin 81 Mg Tab.chew, 81 MG PO DAILY, (Reported) Cephalexin 500 Mg Tablet, 500 MG PO TID Prescribed by: ROSY ROSARIO on 02/15/191900 Hydrocodone Bit/Acetaminophen 1 Tab Tab, 1-2 EACH PO Q6H PRN for PAIN-MODERATE Prescribed by: MAYURI PRASAD on 05/23/19 1939 Patient Home Medication List Home Medication List Reviewed: Yes Review of Systems Constitutional: no symptoms reported EENTM: no symptoms reported Respiratory: no symptoms reported Cardiovascular: no symptoms reported Gastrointestinal: no symptoms reported Genitourinary: no symptoms reported Musculoskeletal: muscle weakness Skin: no symptoms reported Psychiatric/Neurological: See HPI, Numbness, Tingling Past Pvpgoes-Bqzzyf-Vrcxox Hx Past Med/Social Hx: Reviewed Nursing Past Med/Soc Hx Patient Social History Recent Foreign Travel: No Contact w/Someone Who Travel: No Recent Hopitalizations: No Seasonal Allergies Seasonal Allergies: Yes Past Medical History Surgeries: Yes (Shoulder, Bladder pin-up) Hysterectomy, Nose, Orthopedic, Tubal Ligation Respiratory: Yes (Hx sleep study with apnea noted) Sleep Apnea Currently Using CPAP: Yes Cardiac: Yes (Essential HTN on Cartia and HCTZ) Hypertension Neurological: No 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 oz. 75.416449ly; 27.00 BMI Method:Stated General Appearance: No Apparent Distress, WD/WN HEENT: PERRL/EOMI, Normal ENT Inspection, Pharynx Normal Neck: Full Range of Motion, Normal Inspection, Non Tender, Supple Cardiovascular: Regular Rate, Rhythm, No Edema, No Gallop Respiratory: Chest Non Tender, Lungs Clear, Normal Breath Sounds Gastrointestinal: Normal Bowel Sounds, No Organomegaly, No Pulsatile Mass Back: Normal Inspection, No CVA Tenderness Extremities: Normal Capillary Refill Neurologic/Psychiatric: Alert, Oriented x3, Normal Mood/Affect, emergency veterinary technician II-XII Norm as Tested, Abnormal Cerebellar Tests (patient's very unsteady with Romberg solution didn't leave her feet position) Cranial Nerves: Abnormal Speech (patient has some trouble grasping words), Facial Droop, Facial Paresthesias, Facial Weakness, Gaze Palsy, Tongue Deviation (L), Tongue Deviation (R) Coordination/Gait: Normal Finger to Nose, Abnormal Gait, Other (motion was normal) Motor/Sensory: No Motor Deficit Skin: Normal Color, Warm/Dry Progress/Results/Core Measures Results/Orders Lab Results Laboratory Tests Test 11/25/19 23:25 11/25/19 23:55 11/26/19 00:04 Range/Units Urine Color YELLOW Urine Clarity CLEAR Urine pH 7.0 5-9 Urine Specific Transfer 1.010 L 1.016-1.022 Urine Protein NEGATIVE NEGATIVE Urine Glucose (UA) NEGATIVE NEGATIVE Urine Ketones NEGATIVE NEGATIVE Urine Nitrite NEGATIVE NEGATIVE Urine Bilirubin NEGATIVE NEGATIVE Urine Urobilinogen 0.2 < = 1.0 MG/DL Urine Leukocyte Esterase TRACE H NEGATIVE Urine RBC (Auto) NEGATIVE NEGATIVE Urine RBC NONE /HPF Urine WBC 2-5 /HPF Urine Squamous Epithelial Cells 2-5 /HPF Urine Crystals NONE /LPF Urine Bacteria TRACE /HPF Urine Casts NONE /LPF Urine Mucus NEGATIVE /LPF Urine Culture Indicated YES White Blood Count 13.5 H 4.3-11.0 10^3/uL Red Blood Count 3.97 L 4.35-5.85 10^6/uL Hemoglobin 11.8 11.5-16.0 G/DL Hematocrit 35 35-52 % Mean Corpuscular Volume 87 80-99 FL Mean Corpuscular Hemoglobin 30 25-34 PG Mean Corpuscular Hemoglobin Concent 34 32-36 G/DL Red Cell Distribution Width 13.8 10.0-14.5 % Platelet Count 343 130-400 10^3/uL Mean Platelet Volume 9.5 7.4-10.4 FL Neutrophils (%) (Auto) 65 42-75 % Lymphocytes (%) (Auto) 22 12-44 % Monocytes (%) (Auto) 8 0-12 % Eosinophils (%) (Auto) 4 0-10 % Basophils (%) (Auto) 1 0-10 % Neutrophils # (Auto) 8.8 H 1.8-7.8 X 10^3 Lymphocytes # (Auto) 2.9 1.0-4.0 X 10^3 Monocytes # (Auto) 1.1 H 0.0-1.0 X 10^3 Eosinophils # (Auto) 0.6 H 0.0-0.3 10^3/uL Basophils # (Auto) 0.1 0.0-0.1 10^3/uL Prothrombin Time 13.6 12.2-14.7 SEC INR Comment 1.0 0.8-1.4 Activated Partial Thromboplast Time 32 24-35 SEC Sodium Level 141 135-145 MMOL/L Potassium Level 3.3 L 3.6-5.0 MMOL/L Chloride Level 102 98-107 MMOL/L Carbon Dioxide Level 24 21-32 MMOL/L Anion Gap 15 H 5-14 MMOL/L Blood Urea Nitrogen 17 7-18 MG/DL Creatinine 1.08 0.60-1.30 MG/DL Estimat Glomerular Filtration Rate 51 BUN/Creatinine Ratio 16 Glucose Level 107 H 70-105 MG/DL Calcium Level 9.9 8.5-10.1 MG/DL Corrected Calcium 9.7 8.5-10.1 MG/DL Total Bilirubin 0.2 0.1-1.0 MG/DL Aspartate Amino Transf (AST/SGOT) 27 5-34 U/L Alanine Aminotransferase (ALT/SGPT) 28 0-55 U/L Alkaline Phosphatase 110 40-136 U/L Troponin I < 0.30 <0.30 NG/ML Total Protein 6.9 6.4-8.2 GM/DL Albumin 4.2 3.2-4.5 GM/DL Glucometer 115 H 70-110 MG/DL My Orders Orders - ZABALA,DARIEN B DO Cbc With Automated Diff (11/25/19 23:46) Protime With Inr (11/25/19:46) Partial Thromboplastin Time (11/25/19:46) Comprehensive Metabolic Panel (11/25/19:46) Fibrin Degradation Products (11/25/19:46) Troponin I Fs (11/25/19:46) Ua Culture If Indicated (11/25/19:46) Chest 1 View Ap/Pa Only (11/25/19:46) Ekg Tracing (11/25/19:46) Nothing By Mouth (11/26/19 Breakfast) Accucheck Stat ONCE (11/25/19:46) Ed Iv/Invasive Line Start (11/25/19 23:46) Vital Signs Stroke Patient Q15M (11/25/19 23:46) Ct Head Wo-R/O Stroke (11/25/19 23:46) O2 (11/25/19 23:46) Intake & Output 06,14,22 (11/25/19 23:46) Monitor-Rhythm Ecg Trace Only (11/25/19 23:46) Dysphagia Screening Tool (11/25/19 23:46) Post Thrombolytic Adminstratio (11/25/19 23:46) Lipid Panel (11/26/19 06:00) Urine Culture (11/25/19 23:25) [place] Level (11/26/19 00:23) Vital Signs/I&O 11/25/19 23:35 Temp 36.0 Pulse 60 Resp 18 B/P (MAP) 118/55 (76) Pulse Ox 96 O2 Delivery Room Air Progress Progress Note : Progress Note Patient with a complaint of unsteady gait for 3-4 hours history of atrial fibrillation on Xarelto history of recent stroke differential includes TIA stroke cerebellar stroke intracerebral bleed or history of hypertension plan will be urgent CT scanning and neurology consultation for further workup and disposition. Initial ECG Impression Date: November 26, 2019 Initial ECG Impression Time: 00:20 Initial ECG Rate: 56 Initial ECG Rhythm: Normal Sinus Initial ECG Intervals: Normal Initial ECG Impression: Normal Departure Communication (Admissions) Time/Spoke to Admitting Phy: 00:35 Spoke to the stroke neurologist . Case fully presented she recommends transferring the patient to as a stroke activation and agreed to follow-up on the lithium Time/Spoke to Consulting Phy: 00:[address] reviewed stroke neurologist agreed patient should be transferred for further evaluation Impression Primary Impression: Ataxia Disposition: XFER SHT-TRM HOSP Condition: Unchanged Admissions Decision to Admit Reason: Admit from ER (General) Decision to Admit/Date: November 26, 2019 Time/Decision to Admit Time: 00:01 Transfer Transfer Reason: Exceeds level of care Time Spoke to Accepting Phy: 00:37 Transfer Time: 00:37 Transfer Facility: Dr. Helen Ricks as stroke activation and Litium check Method of Transfer: EMS Departure-Patient Inst. Referrals: SELFTARUN MD (PCP/Family) Primary Care Physician DARIEN ZABALA DO November 25, 2019 23:45
[2019-11-25 23:50] LABS: BILIRUBIN,URINE NEGATIVE (NEGATIVE); CLARITY,URINE CLEAR; COLOR,URINE YELLOW; GLUCOSE, URINE (UA) NEGATIVE (NEGATIVE); KETONES,URINE NEGATIVE (NEGATIVE); NITRITE,URINE NEGATIVE (NEGATIVE); PROTEIN,URINE NEGATIVE (NEGATIVE)
[2019-11-25 23:51] LABS: BACTERIA,URINE TRACE /HPF; LEUKOCYTE ESTERASE ,URINE TRACE (NEGATIVE)
[2019-11-26 00:10] LABS: BASOPHILS # (AUTO) 0.1 10^3/uL (0.0-0.1); BASOPHILS % (AUTO) 1 % (0-10); EOSINOPHILS # (AUTO) 0.6 10^3/uL (0.0-0.3); EOSINOPHILS % (AUTO) 4 % (0-10); HEMATOCRIT 35 % (35-52); HEMOGLOBIN 11.8 G/DL (11.5-16.0); LYMPHOCYTES # (AUTO) 2.9 X 10^3 (1.0-4.0); LYMPHOCYTES % (AUTO) 22 % (12-44); MEAN CORPUSCULAR HEMOGLOBIN 30 PG (25-34); MEAN CORPUSCULAR HGB CONC 34 G/DL (32-36); MEAN CORPUSCULAR VOLUME 87 FL (80-99); MEAN PLATELET VOLUME 9.5 FL (7.4-10.4); MONOCYTES # (AUTO) 1.1 X 10^3 (0.0-1.0); MONOCYTES % (AUTO) 8 % (0-12); NEUTROPHILS # (AUTO) 8.8 X 10^3 (1.8-7.8); NEUTROPHILS % (AUTO) 65 % (42-75); PLATELET COUNT 343 10^3/uL (130-400); RED CELL DISTRIBUTION WIDTH 13.8 % (10.0-14.5); WHITE BLOOD COUNT 13.5 10^3/uL (4.3-11.0)
[2019-11-26 00:23] LABS: ALANINE AMINOTRANSFERASE 28 U/L (0-55); ALBUMIN 4.2 GM/DL (3.2-4.5); ALKALINE PHOSPHATASE 110 U/L (40-136); BILIRUBIN,TOTAL 0.2 MG/DL (0.1-1.0); BUN/CREATININE RATIO 16; CALCIUM 9.9 MG/DL (8.5-10.1); CARBON DIOXIDE 24 MMOL/L (21-32); CHLORIDE 102 MMOL/L (98-107); CREATININE SERUM 1.08 MG/DL (0.60-1.30); GFR ESTIMATED 51; GLUCOSE 107 MG/DL (70-105); POTASSIUM 3.3 MMOL/L (3.6-5.0); SODIUM 141 MMOL/L (135-145); TOTAL PROTEIN 6.9 GM/DL (6.4-8.2)
[2019-11-26 00:47] LABS: PROTHROMBIN TIME PATIENT 13.6 SEC (12.2-14.7)
[2019-11-26 01:00] LABS: FIBRIN DEGRADATION PRODUCTS 0.42 UG/ML (0.00-0.49)
[2019-11-26 01:05] VITALS: BP 119/63
--- NOTE | 2019-11-26 01:05 | NUR ---
ems here report and care given to medic Addendum: 11/26/19 at 0126 by [id number] pt ambulated to ems cot with assist of 1, tolerated well
--- NOTE | 2019-11-26 07:57 | Diagnostic Imaging Report ---
INDICATION: Dizziness, losing balance.. TECHNIQUE: Single view chest 12:09 AM. CORRELATION STUDY: None FINDINGS: The heart size, mediastinal configuration and pulmonary vascularity are within normal limits. The lungs are clear with no consolidating infiltrate. There is no significant effusion or pneumothorax. IMPRESSION: 1. Negative appearing portable chest. Dictated by: Dictated on workstation # [id number]
--- NOTE | 2019-11-26 07:59 | Diagnostic Imaging Report ---
PROCEDURE: CT head wo r/o stroke. TECHNIQUE: Multiple contiguous axial images were obtained through the brain without the use of intravenous contrast. Auto Exposure Controls were utilized during the CT exam to meet ALARA standards for radiation dose reduction. INDICATION: Dizziness, losing balance. CORRELATION: None FINDINGS: There is no midline shift or mass effect. The ventricles and sulci are unremarkable. No evidence for acute intracranial hemorrhage, abnormal extra-axial fluid collections or cerebral edema is present. The basilar cisterns are unremarkable. The bony calvarium is intact. The visualized paranasal sinuses and mastoid air cells are clear. IMPRESSION: Negative appearing noncontrast CT of the head. Dictated by: Dictated on workstation # [id number]
== END 2019-11-26 01:05 | disposition short-term general hospital (02) ==
LOC: EDUNIT# 23:12 → ER FS 23:15
DX: R27.0 Ataxia, unspecified (principal); I10 Essential (primary) hypertension; Z88.8 Allergy status to other drugs, medicaments and biological substances; Z79.82 Long term (current) use of aspirin
CPT/HCPCS: 36415; 70450; 71045; 80053; 81000; 82962; 84484; 85025; 85379; 85610; 85730; 87088; 93005

== ENCOUNTER 2020-03-24 02:28 | Emergency (ER) | payer MEDICARE, OTHER ==
[2020-03-24] MEDS ORDERED: RX-NEO/POLYB/HC OTIC (CORTISPORIN) SUSP 10 ML BTL ONE (02:40)
[2020-03-24] MEDS ORDERED: HYDROcodone/APAP 5 MG/325 MG (LORTAB) TAB ONE (02:41)
[2020-03-24] MEDS ORDERED: RX-NEO/POLYB/HC OTIC (CORTISPORIN) SUSP 10 ML BTL OT STA (02:46)
--- NOTE | 2020-03-24 02:55 | ED EENT ---
History of Present Illness General Chief Complaint: Ear Problems Stated Complaint: EARACHE Nursing Triage Note: Pt complaining of left ear pain that has been getting worse over the past few days Source: patient Exam Limitations: no limitations History of Present Illness Date Seen by Provider: Mar 24, 2020 Time Seen by Provider: 14:45 Initial Comments 3 days progressive R ear pain. No drainage, no previous occurrence. Started just in ear now radiating to jaw .....all on left side. Took a hydrocodone 4 hours ago w some relief. Allergies and Home Medications Allergies Coded Allergies: lisinopril (Unverified Adverse Reaction, Mild, cough, 02/15/19) paroxetine (Unverified Adverse Reaction, Unknown, nervous/shaking, 02/15/19) Home Medications Aspirin 81 Mg Tab.chew, 81 MG PO DAILY, (Reported) Cephalexin 500 Mg Tablet, 500 MG PO TID Prescribed by: ROSY ROSARIO on 02/15/191900 Hydrocodone Bit/Acetaminophen 1 Tab Tab, 1-2 EACH PO Q6H PRN for PAIN-MODERATE Prescribed by: MAYURI PRASAD on 05/23/191938 Patient Home Medication List Home Medication List Reviewed: Yes Review of Systems Review of Systems Constitutional: No dizziness, No fever, No malaise, No weakness Eyes: Denies Blurred Vision, Denies Drainage, Denies Decreased Acuity, Denies Inflammation, Denies Pain, Denies Photophobia, Denies Tunnel Vision, Denies Vision Changes Ears: See HPI; Denies Dizziness; Pain; Denies Tinnitus, Denies Bloody Discharge, Denies Clear Discharge, Denies Purulent Discharge, Denies Serosanguinous Discharge, Denies Previous Injury Nose: denies congestion, denies epistaxis Mouth: denies pain, denies swelling Throat: denies pain, denies swelling, denies discharge Respiratory: No cough, No short of breath Cardiovascular: No chest pain, No edema, No palpitations, No syncope Skin: No change in color, No lesions, No lumps, No rash Neurological: Denies Headache, Denies Numbness, Denies Paresthesia Past Hxpjcwb-Opvrku-Wvtwqj Hx Past Med/Social Hx: Reviewed Nursing Past Med/Soc Hx Patient Social History Alcohol Use: Denies Use Recreational Drug Use: No Smoking Status: Never a Smoker Recent Foreign Travel: No Contact w/Someone Who Travel: No Recent Infectious Disease Expo: No Recent Hopitalizations: No Physical Abuse: No Sexual Abuse: No Seasonal Allergies Seasonal Allergies: Yes Past Medical History Surgeries: Yes (Shoulder, Bladder pin-up) Hysterectomy, Nose, Orthopedic, Tubal Ligation Respiratory: Yes (Hx sleep study with apnea noted) Sleep Apnea Currently Using CPAP: Yes Cardiac: Yes (Essential HTN on Cartia and HCTZ) Hypertension Neurological: Yes 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 oz. [id number]; 28.00 BMI Method:Stated General Appearance: WD/WN, no apparent distress Eyes: bilateral eye normal inspection, bilateral eye PERRL, bilateral eye EOMI Ears: right ear canal normal, right ear TM normal; left ear erythema, left ear swelling, left ear tenderness; bilateral ear auricle normal Nose: normal inspection; No sinus tenderness Mouth/Throat: pharynx normal; No dental tenderness, No excessive drooling, No foreign body, No mandibular swelling, No maxillary swelling, No pharynx swell ing, No pharynx tenderness, No tongue swollen, No tonsillar exudate, No tonsillar swelling, No trismus, No uvula swelling, No voice changes Neck: non-tender, supple, normal inspection Neurologic/Psychiatric: no motor/sensory deficits, alert, normal mood/affect, oriented x 3 Skin: normal color, warm/dry Procedures/Interventions Ear : Ear Location: Left Inserted: Ear Wick Inserted Medications: Coricosporin Otic Progress/Results/Core Measures Results/Orders My Orders Orders - MOI CONRAD DO Rx-Bruce/Poly/Hc Otic Susp (Rx-Cortisporin (03/24/20 02:40) Hydrocodone/Apap 5/325 Tablet (Lortab 5 (03/24/20 02:41) Rx-Bruce/Poly/Hc Otic Susp (Rx-Cortisporin (03/24/20 02:46) Hydrocodone/Apap 5/325 Tablet (Lortab 5 (03/24/20 03:00) Vital Signs/I&O 03/24/20 02:33 Temp 36.8 Pulse 58 Resp 16 B/P (MAP) 116/63 (80) Pulse Ox 97 O2 Delivery Room Air Blood Pressure Mean: 80 Departure Impression Primary Impression: Otitis externa Qualified Codes: H60.502 - Unspecified acute noninfective otitis externa, left ear Disposition: HOME, SELF-CARE Condition: Improved Departure-Patient Inst. Decision time for Depature: 02:53 Referrals: SELFTARUN MD (PCP/Family) Primary Care Physician Patient Instructions: Outer Ear Infection (DC) Add. Discharge Instructions: See your PCP in 5 days for re-evaluation All discharge instructions reviewed with patient and/or family. Voiced understanding. Scripts Hydrocodone/Acetaminophen (Hydrocodone-Acetamin 5-325 mg) 1 Each Tablet 1 EACH PO Q4H for Abdominal Pain, #10 TAB Prov: MOI CONRAD DO 03/24/20 MOI CONRAD DO Mar 24, 2020 02:55
[2020-03-24 03:00] VITALS: BP 116/63
[2020-03-24] MEDS ORDERED: HYDROcodone/APAP 5 MG/325 MG (LORTAB) TAB PO ONE (03:00)
[2020-03-24] MEDS ORDERED: ACHD5005 PO (03:01)
== END 2020-03-24 03:02 | disposition home or self-care (01) ==
LOC: EDUNIT# 02:28 → ER FS 02:31
DX: H60.92 Unspecified otitis externa, left ear (principal); Z88.8 Allergy status to other drugs, medicaments and biological substances; Z79.82 Long term (current) use of aspirin
CPT/HCPCS: 99283

== ENCOUNTER 2020-08-12 05:56 | Outpatient (RCR) | payer MEDICARE, OTHER ==
[~2020-08-12] VITALS: Ht 167.7 cm; Wt 80.5 kg
[~2020-08-12 05:56] MED LIST changes: -MONT10TA26; +MONT10TA32
[2020-08-12] MEDS ORDERED: SUCR1TAB36 PO (12:27)
[2020-08-12] MEDS ORDERED: RIVA20TA PO (12:27)
== END 2020-08-15 14:38 | disposition home or self-care (01) ==
LOC: PREOP 05:56
PROVIDERS: ATTEND Surgery
DX: Z01.818 Encounter for other preprocedural examination (principal)

== ENCOUNTER → 2020-08-14 | Outpatient (CLI) | payer MEDICARE, OTHER ==
[~2020-08-14] MED LIST changes: +RIVA20TA PO; +SUCR1TAB36 PO
== END ==
LOC: LAB FS 09:47
PROVIDERS: ATTEND Surgery
DX: Z12.11 Encounter for screening for malignant neoplasm of colon (principal); Z20.822 Contact with and (suspected) exposure to COVID-19
CPT/HCPCS: 87635

== ENCOUNTER 2020-08-19 09:35 | Day surgery (SDC) | payer MEDICARE, OTHER ==
[~2020-08-19] VITALS: Ht 167.7 cm; Wt 80.5 kg
[2020-08-19] VITALS (7 sets, daily range): BP systolic 104–119; BP diastolic 52–70
[2020-08-19] MEDS ORDERED: LACTATED RINGERS 1,000 ML IV ONE (09:47)
[2020-08-19] MEDS ORDERED: LACTATED RINGERS 1,000 ML IV STA (10:01)
--- NOTE | 2020-08-19 10:14 | Progress Note-Pre Operative ---
Pre-Operative Progress Note H&P Reviewed The H&P was reviewed, patient examined and no changes noted. Time Seen by Provider: 10:11 Date H&P Reviewed: Aug 19, 2020 Time H&P Reviewed: 10:12 Pre-Operative Diagnosis: ULI Mccord DO Aug 19, 2020 10:14
[2020-08-19] MEDS ORDERED: PROPOFOL INJECTION 50 ML IV ONE (10:50)
--- NOTE | 2020-08-19 12:04 | Progress Note-Post Operative ---
Post-Operative Progess Note Surgeon (s)/Van Cdl Driver (s) Surgeon ULI SERNA DO Van Cdl Driver: FALGUNI Rodney Pre-Operative Diagnosis Screening Post-Operative Diagnosis diverticula int hemorrhoids poor prep Procedure & Operative Findings Date of Procedure 08/19/20 Procedure Performed/Findings colonocopy Anesthesia Type IV sedation by FOOD AND BEVERAGE ASSOCIATE Estimated Blood Loss Estimated blood loss (mL): none Specimens/Packing Specimens Removed none ULI SERNA DO Aug 19, 2020 12:04
--- NOTE | 2020-08-19 12:05 | Endoscopy Discharge Instruct ---
Endo Procedure/Findings Findings 1.: Diverticulosis 2.: Internal Hemorrhoids Discharge Instructions - Activity: You might feel a little sleepy until tomorrow. This is due to the medicine you received to relax you. Until tomorrow, you should: NOT drive a car, operate machinery or power tools. NOT drink any alcoholic beverages. NOT make any important decisions or sign importortant papers. Do not return to work until tomorrow, unless otherwise instructed. Resume previous activities tomorrow. Diet: Start by taking liquids. If you tolerate liquids, advance to solid food. 1.: Colonoscopy in 1 year (secondary to poor prep) Notify Physician - If you experience excessive bleeding, unusual abdominal pain, fever, or chest pain, contact your doctor immediately. ULI SERNA DO Aug 19, 2020 12:05
--- NOTE | 2020-08-19 13:16 | Anesthesia-General Post-Op ---
MAC Patient Condition Mental Status/LOC: Same as Preop Cardiovascular: Satisfactory Nausea/Vomiting: Absent Respiratory: Satisfactory Pain: Controlled Complications: Absent Post Op Complications Complications None Follow Up Care/Instructions Patient Instructions None needed. Anesthesiology Discharge Order Discharge Order Patient is doing well, no complaints, stable vital signs, no apparent adverse anesthesia problems. No complications reported per nursing. ALLYSSA FONTANA CRNA Aug 19, 2020 13:16
--- NOTE | 2020-08-19 23:19 | OPERATIVE REPORT ---
DATE OF SERVICE: PREOPERATIVE DIAGNOSIS: Screening colonoscopy. POSTOPERATIVE DIAGNOSES: Diverticula, internal hemorrhoids and poor prep. PROCEDURE: Colonoscopy. SURGEON: Jesús Castro DO SPA DIRECTOR: Marifer Christian MS4. ANESTHESIA: IV sedation by the LIP OF SHANK CUTTER. SPECIMENS: None. BLOOD LOSS: None. FLUIDS: Per anesthesia. POSTOPERATIVE CONDITION: Stable. INDICATION FOR PROCEDURE: The patient is a 65-year-old female who needs a screening colonoscopy. FINDINGS: The patient had some diverticula, small internal hemorrhoids. She also had a poor prep. PROCEDURE NOTE: After informed consent was obtained, the patient was brought to the endoscopy suite, placed in bed in left lateral decubitus position. She was administered IV sedation by the LIP OF SHANK CUTTER who then monitored her vitals the entire time, heart rate, blood pressure and pulse ox and the scope was inserted. On the way in, noted the patient had a very poor prep, unable to clear some of the esophageal wall with fluid, but could not clear all of it. On the ascending colon side, saw diverticula, took a picture of this, able to get into the cecum, took a picture of appendiceal orifice, noted the ileocecal valve and then slowly withdrew the scope insufflating to look circumferentially at the carrillo and then slowly withdrawn and the scope starting the cecum, up into the ascending colon and then to the hepatic flexure, then down the transverse colon to the splenic flexure and into the descending colon. Again, throughout here lot of fecal material covering the carrillo, trying to clear it. Able to clear most of it, but not all of it. Continued down the sigmoid colon, into the descending colon and sigmoid colon into the rectum, retroflexed in rectal vault, saw some very minimal internal hemorrhoids. No other obvious pathology. Scope was removed. The patient tolerated the procedure. She was recovered in endoscopy suite. Job ID: [id number] DocumentID: [id number] Dictated Date: 08/19/2020 22:31:28 Development Scientist Date: 08/19/2020 23:19:07 Dictated By: JESÚS CASTRO DO
== END 2020-08-19 13:00 | disposition home or self-care (01) ==
LOC: ENDO 09:35
PROVIDERS: ATTEND Surgery
DX: Z12.11 Encounter for screening for malignant neoplasm of colon (principal); K59.00 Constipation, unspecified; K57.30 Diverticulosis of large intestine without perforation or abscess without bleeding; K64.8 Other hemorrhoids; I48.91 Unspecified atrial fibrillation; I10 Essential (primary) hypertension; G47.33 Obstructive sleep apnea (adult) (pediatric); F32.9 Major depressive disorder, single episode, unspecified; J30.2 Other seasonal allergic rhinitis; K21.9 Gastro-esophageal reflux disease without esophagitis; F41.9 Anxiety disorder, unspecified; Z88.8 Allergy status to other drugs, medicaments and biological substances; Z83.3 Family history of diabetes mellitus; Z98.51 Tubal ligation status; Z98.890 Other specified postprocedural states; Z90.710 Acquired absence of both cervix and uterus; Z79.01 Long term (current) use of anticoagulants; Z79.2 Long term (current) use of antibiotics; Z79.899 Other long term (current) drug therapy

== ENCOUNTER → 2021-11-28 | Outpatient (CLI) | payer MEDICARE, OTHER ==
[~2021-11-28] MED LIST changes: +MONT-40; -MONT10TA32
--- NOTE | 2021-11-28 13:29 | Diagnostic Imaging Report ---
INDICATION: Left knee pain. TIME OF EXAM: 1:09 PM FINDINGS: 3 views left knee were obtained. There is medial compartmental degenerative change with slight joint space narrowing as well as marginal osteophyte formation. Lateral and patellofemoral compartments are well-maintained. There is suprapatellar fullness consistent with suprapatellar joint effusion. No fractures are seen. IMPRESSION: Degenerative changes with moderate knee joint effusion. No acute bony abnormality is detected. Dictated by: Dictated on workstation # [id number]
== END ==
LOC: RAD FS 12:52
PROVIDERS: ATTEND Nurse Practitioner Family
DX: M17.12 Unilateral primary osteoarthritis, left knee (principal)
CPT/HCPCS: 73562

== ENCOUNTER → 2021-12-05 | Outpatient (CLI) | payer MEDICARE, OTHER ==
--- NOTE | 2021-12-05 16:19 | Diagnostic Imaging Report ---
EXAMINATION: Magnetic resonance imaging of the left knee without intravenous contrast DATE: December 05, 2021. COMPARISON: Left knee radiographs November 28, 2021. INDICATION: 66-year-old female, left knee pain. TECHNIQUE: Multiplanar, multisequence non contrast enhanced MR imaging was accomplished. FINDINGS: MENISCI: There is an oblique tear involving the anterior horn, body and posterior horn of the medial meniscus. There is 3 mm medial meniscal extrusion. The lateral meniscus is intact. LIGAMENTS AND TENDONS: The anterior and posterior cruciate ligaments are intact. The medial collateral ligament is intact. The iliotibial band, mid third lateral capsular ligament, fibular collateral ligament, biceps femoris tendon and conjoined tendon are intact. The quadriceps tendon and patella ligament are intact. JOINT: There are broad areas of approximately 75% cartilage loss of the weightbearing portion of the medial femoral condyle with subjacent similar thinning of the cartilage of the medial tibial plateau. The lateral compartment cartilage is grossly intact. The patellofemoral compartment cartilage is grossly intact. There is no knee joint effusion, prominent synovitis or identified intra-articular body. BONE: There is no acute fracture, bone contusion or evidence of osteonecrosis. BURSAE AND SOFT TISSUES: There is a Grant's cyst. There is low-level debris in the Grant's cyst. There is partial rupture of the Grant's cyst. IMPRESSION: 1. Oblique tear involving the anterior horn, body, posterior horn of the medial meniscus with 3 mm medial meniscal extrusion. 2. Intact lateral meniscus. 3. Intact anterior and posterior cruciate ligaments. Additional ligaments and tendons are intact. 4. Moderate to severe medial compartment osteoarthritis without knee joint effusion. 5. Partially ruptured Grant's cyst with low-level internal debris. 6. No acute fracture, bone contusion or evidence of osteonecrosis. Dictated by: Dictated on workstation # [id number]
== END ==
LOC: RAD 14:45
PROVIDERS: ATTEND Nurse Practitioner Family
DX: S83.241A Other tear of medial meniscus, current injury, right knee, initial encounter (principal); S86.811A Strain of other muscle(s) and tendon(s) at lower leg level, right leg, initial encounter; M17.11 Unilateral primary osteoarthritis, right knee; X58.XXXA Exposure to other specified factors, initial encounter
CPT/HCPCS: 73721

== ENCOUNTER → 2022-05-11 | Outpatient (CLI) | payer MEDICARE, OTHER ==
[~2022-05-11] MED LIST changes: +GADOTERATE 0.5 MMOL/ML (CLARISCAN) 20 ML VIAL IV ONE
[2022-05-11 11:15] LABS: ALBUMIN 3.8 GM/DL (3.2-4.5); BILIRUBIN,TOTAL 0.4 MG/DL (0.1-1.0); CALCIUM 9.3 MG/DL (8.5-10.1); CREATININE SERUM 1.04 MG/DL (0.60-1.30); POTASSIUM 3.6 MMOL/L (3.6-5.0); TOTAL PROTEIN 6.9 GM/DL (6.4-8.2)
--- NOTE | 2022-05-11 15:21 | Diagnostic Imaging Report ---
PROCEDURE: MRI lumbar spine with and without contrast. INDICATION: 67-year-old female, increased low back pain. History of previous lumbar spine surgery.. TECHNIQUE: Multiplanar and multisequence magnetic resonance imagine was performed of the lumbar spine without and with contrast. CORRELATION STUDY: 09/20/2019 FINDINGS: Posterior decompression with fusion including transpedicular screws and interconnecting rods at the L5-S1 level. Moderate metallic artifact at this level. Lumbar spinal alignment demonstrates trace retrolisthesis of L3 on L4. Leftward curvature lower lumbar spine with rightward curvature superior lumbar spine. Probable hemangiomas particularly L1 and L3 predominantly type II Modic signal changes at the plates of L5 and S1 again demonstrated. No concerning geographic lesion. The conus appears unremarkable. L1-L2: Unremarkable. L2-L3: Mild loss of disc space height. Malignant hypertrophy. No significant canal or foraminal narrowing. L3-L4: Moderate loss disc space height. Rather significant ligament facet hypertrophy. Additionally, there is broad-based disc bulge and osteophyte formation. This results in rather marked severity spinal canal narrowing. AP dimension narrowed to approximately 5 to 6 mm. At least moderate bilateral foraminal narrowing left slightly greater than right. L4-L5: Mild loss disc space height loss and mild broad-based disc bulge. Ligament and facet hypertrophy result in at least moderate severity triple to spinal canal narrowing particularly in the posterior lateral aspect. AP dimension of the canal at 11 mm. Very mild foraminal narrowing. L5-S1: Mild ligamentum hypertrophy. Asymmetric disc osteophyte formation results in moderate right foraminal narrowing, slight abutment, some effacement of the exiting nerve root. Left foramen is maintained. Prominent sacral dural cyst at S2 level. No abnormal areas of a concerning enhancement. Probable bilateral renal cortical cysts. IMPRESSION: 1. L5-S1 posterior lumbar body fusion. No concerning abnormal areas of enhancement or postoperative fluid collections. 2. Disc osteophyte formation L5-S1 level results in rather significant right foraminal narrowing. 3. Marked severity L3-L4 spinal canal stenosis owing to combination of disc bulge, endplate spurring and facet ligamentum flavum hypertrophy. 4. Mild, less severe narrowing spinal canal L4-L5 level. 5. Scattered areas of foraminal narrowing as detailed above. Dictated by: Dictated on workstation # [id number]
== END ==
LOC: RAD 10:15
PROVIDERS: ATTEND Nurse Practitioner Family
DX: M25.78 Osteophyte, vertebrae (principal); M48.061 Spinal stenosis, lumbar region without neurogenic claudication; M51.26 Other intervertebral disc displacement, lumbar region; M89.38 Hypertrophy of bone, other site; Z98.1 Arthrodesis status
CPT/HCPCS: 36415; 72158; 80053

== ENCOUNTER → 2022-07-24 | Outpatient (CLI) | payer MEDICARE ==
[~2022-07-24] MED LIST changes: -GADOTERATE 0.5 MMOL/ML (CLARISCAN) 20 ML VIAL IV ONE
--- NOTE | 2022-07-24 10:06 | Diagnostic Imaging Report ---
PROCEDURE: CT lumbar spine without contrast. TECHNIQUE: Multiple contiguous axial images were obtained through the lumbar spine without the use of intravenous contrast. Sagittal and coronal reformations were then performed. Auto Exposure Controls were utilized during the CT exam to meet ALARA standards for radiation dose reduction. INDICATION: Back pain. Spinal stenosis. COMPARISON: 05/11/2022. FINDINGS: No acute fracture or dislocation is seen in the lumbar spine. Stable posterior fusion changes are visualized from L5 to S1. No evidence of hardware fracture or loosening. There is right lateral subluxation of L3 on L4 with associated endplate degenerative changes at the L3-L4 level. No suspicious focal osseous lesions. There is severe spinal canal stenosis at the L3-L4 level. No high density material is seen within the spinal canal. The paraspinal soft tissues are unremarkable. IMPRESSION: 1. No acute fracture or dislocation in the lumbar spine. 2. Posterior fusion from L5 to S1. No hardware complication. 3. Right lateral subluxation of L3 on L4 with endplate degenerative changes and associated severe spinal canal stenosis. Dictated by: Dictated on workstation # [id number]
--- NOTE | 2022-07-24 10:52 | Diagnostic Imaging Report ---
INDICATION: Lumbar spondylosis. TIME OF EXAM: 9:44 AM. TECHNIQUE: AP and lateral as well as lateral flexion and extension views of the lumbar spine were obtained. FINDINGS: There is a slight S-shaped scoliotic curvature to the lumbar spine. There is normal lumbar lordotic curvature. There are postop changes of posterior instrumented fusion with vertical stabilization rods and pedicle screw transfixing the L5-S1 level. The vertebral body heights are maintained. There is generalized degenerative disc disease, greatest at the L3-L4 level where there is a moderate amount of disc space narrowing. There is multilevel facet arthropathy as well. There also appears to be very slight rightward subluxation of L3 on L4 seen on the AP view. No definite abnormal motion is identified during flexion or extension maneuvers. No fractures are seen. IMPRESSION: Lumbar spondylosis and post surgical changes. No abnormal motion is identified during flexion or extension maneuvers. Dictated by: Dictated on workstation # [id number]
== END ==
LOC: RAD FS 09:13
PROVIDERS: ATTEND Neurological Surgery
DX: M47.816 Spondylosis without myelopathy or radiculopathy, lumbar region (principal); M48.061 Spinal stenosis, lumbar region without neurogenic claudication; Z98.1 Arthrodesis status
CPT/HCPCS: 72114; 72131

== ENCOUNTER 2023-04-06 14:23 | Emergency (ER) | payer MEDICARE ==
[~2023-04-06] VITALS: Ht 166 cm; Wt 85.5 kg
[2023-04-06 14:28] VITALS: BP 157/76
[2023-04-06 14:53] LABS: BASOPHILS # (AUTO) 0.1 10^3/uL (0.0-0.1); BASOPHILS % (AUTO) 1 % (0-10); EOSINOPHILS # (AUTO) 0.2 10^3/uL (0.0-0.3); EOSINOPHILS % (AUTO) 2 % (0-10); HEMATOCRIT 36 % (35-52); HEMOGLOBIN 12.1 g/dL (11.5-16.0); LYMPHOCYTES # (AUTO) 2.9 10^3/uL (1.0-4.0); LYMPHOCYTES % (AUTO) 22 % (12-44); MEAN CORPUSCULAR HEMOGLOBIN 29 pg (25-34); MEAN CORPUSCULAR HGB CONC 33 g/dL (32-36); MEAN CORPUSCULAR VOLUME 86 fL (80-99); MEAN PLATELET VOLUME 9.3 fL (9.0-12.2); MONOCYTES # (AUTO) 0.8 10^3/uL (0.0-1.0); MONOCYTES % (AUTO) 6 % (0-12); NEUTROPHILS # (AUTO) 9.2 10^3/uL (1.8-7.8); NEUTROPHILS % (AUTO) 70 % (42-75); PLATELET COUNT 366 10^3/uL (130-400); WHITE BLOOD COUNT 13.2 10^3/uL (4.3-11.0)
--- NOTE | 2023-04-06 15:14 | ED General ---
General Chief Complaint: Respiratory Problems Stated Complaint: SOB; LWR RT BACK PAIN Nursing Triage Note: PT ASSISTED TO ROOM #FS01 VIA ER W/C BY ER STAFF FROM WAITING ROOM W/CC SOA, NUMBNESS/TINGLING TO EXTREMITIES, AND RT CHEST WALL PAIN WHEN TAKING A DEEP BREATH. PT REPOTS SHORTNESS OF AIR BEGAN YESTERDAY AND HAS BEEN PROGRESSIVE THROUGHOUT THIS DAY. PT NOTEABLY ANXIOUS AND TACHYPNEIC DURING TRIAGE. DENIES FEVER OR CHILLS. PT REPORTS SHE FORGOT TO TAKE SCHEDULED MEDICATION ON THE [facility] ON 04/05/23 AND TAKE SCHEDULED DOSE UPON RISE THIS AM. Source of Information: Patient, Family, RN Notes Reviewed () Exam Limitations: No Limitations History of Present Illness Date Seen by Provider: Apr 06, 2023 Time Seen by Provider: 14:28 Initial Comments 67-year-old female patient with history of hypertension, atrial fibrillation on Xarelto, sleep apnea, CVA with remaining right hand numbness presented POV with and daughter because of shortness of breath and right side pain. Patient complaining of mild right flank pain since last night that getting worse with taking deep breath and movement and rated her pain 1-2/10. Patient stated she was at work today and had mild right flank pain that became worse during her lunch break and had shortness of breath with numbness of bilateral feet and right hand. Patient stated the numbness of bilateral feet is going on for 2 years and her right hand numbness is going on since her CVA. Patient is very anxious at arrival to ER but denies history of anxiety and panic attack. Patient has been stated she get anxiety when she does not feel good. Patient denies chest pain, fever and chills, cough, new focal neurodeficit, nausea and vomiting, diarrhea and constipation, urinary symptoms. Patient complaining of palpitation. Patient had O2 sat of 100% at arrival to ER. Allergies and Home Medications Allergies Coded Allergies: lisinopril (Unverified Adverse Reaction, Mild, cough, 02/15/19) paroxetine (Unverified Adverse Reaction, Unknown, nervous/shaking, 02/15/19) Patient Home Medication List Home Medication List Reviewed: Yes Alprazolam (Alprazolam) 0.5 Mg Tablet, (Reported) Entered as Reported by: DEMETRIO DAWN on 02/15/19 7636 Aspirin (Aspirin) 81 Mg Tab.chew, 81 MG PO DAILY, (Reported) Entered as Reported by: DEMETRIO DAWN on 02/15/191749 Diltiazem HCl (Cartia Xt) 240 Mg Cap.er.24h, (Reported) Entered as Reported by: DEMETRIO DAWN on 02/15/191749 Duloxetine HCl (Duloxetine HCl) 60 Mg Capsule.dr, (Reported) Entered as Reported by: DEMETRIO DAWN on 02/15/191749 Hydrochlorothiazide (Hydrochlorothiazide) 25 Mg Tablet, (Reported) Entered as Reported by: DEMETRIO DAWN on 02/15/191749 Montelukast Sodium (Montelukast Sodium) 10 Mg Tablet, (Reported) Entered as Reported by: DEMETRIO DAWN on 02/15/191749 Rivaroxaban (Xarelto) 20 Mg Tablet, 20 MG PO DAILY, (Reported) Entered as Reported by: SHONA HALEY on 08/12/201226 Sucralfate (Carafate) 1 Gm Tablet, 1 GM PO PRN, (Reported) Entered as Reported by: SHONA HALEY on 08/12/20 122 Sulfamethoxazole/Trimethoprim (Bactrim Ds Tablet) 800 Mg-160 Mg Tablet, 1 EACH PO BID Prescribed by: Fadia burrows on 04/06/231720 Zolpidem Tartrate (Zolpidem Tartrate) 10 Mg Tablet, (Reported) Entered as Reported by: DEMETRIO DAWN on 02/15/191750 [Calcium] , (Reported) Entered as Reported by: DEMETRIO DAWN on 02/15/191749 [Cinnamon] , (Reported) Entered as Reported by: DEMETRIO DAWN on 02/15/191749 Review of Systems Review of Systems Constitutional: see HPI EENTM: no symptoms reported Respiratory: see HPI Cardiovascular: see HPI Gastrointestinal: no symptoms reported Genitourinary: no symptoms reported Musculoskeletal: see HPI Skin: no symptoms reported Psychiatric/Neurological: See HPI Hematologic/Lymphatic: No Symptoms Reported Immunological/Allergic: no symptoms reported All Other Systems Reviewed Negative Unless Noted: Yes Past Osydmsu-Vnwdas-Ifzwol Hx Patient Social History Tobacco Use?: No Smoking Status: Never a Smoker Substance use?: No Alcohol Use?: No Pt feels they are or have been: No Seasonal Allergies Seasonal Allergies: Yes Past Medical History Surgeries: Yes (Shoulder, Bladder pin-up) Hysterectomy, Nose, Orthopedic, Tubal Ligation Respiratory: Yes (Hx sleep study with apnea noted) Sleep Apnea Currently Using CPAP: Yes Cardiac: Yes (Essential HTN on Cartia and HCTZ) Hypertension Neurological: Yes Stroke ORDER ENTRY History: Hysterectomy Genitourinary: No Gastrointestinal: No Musculoskeletal: Yes (SLIGHT WEAKNESS RIGHT HAND FROM CVA) Endocrine: No HEENT: No Cancer: No Psychosocial: Yes (on Cymbalta) Anxiety, Depression Integumentary: No Blood Disorders: No Physical Exam Vital Signs Vital Signs - First Documented 04/06/23 14:28 Temp 36.7 Pulse 90 Resp 40 B/P (MAP) 157/76 (103) Pulse Ox 100 O2 Delivery Simple Mask Capillary Refill : Less Than 3 Seconds Height, Weight, BMI Height: 5'6.00" Weight: 167lbs. oz. 75.401880sr; 196.00 BMI Method:Stated General Appearance: Anxious, Mild Distress, Obese Eyes: Bilateral Eye Normal Inspection, Bilateral Eye PERRL, Bilateral Eye EOMI HEENT: PERRL/EOMI, Normal ENT Inspection, Pharynx Normal Neck: Full Range of Motion, Normal Inspection, Non Tender, Supple Respiratory: Chest Non Tender, Lungs Clear, Normal Breath Sounds, No Accessory Muscle Use, No Respiratory Distress Cardiovascular: Regular Rate, Rhythm, No Edema, No Gallop, No JVD Gastrointestinal: Normal Bowel Sounds, No Organomegaly, No Pulsatile Mass, Non Tender Back: Normal Inspection Extremity: Normal Capillary Refill, Normal Inspection Neurologic/Psychiatric: Alert, Oriented x3 Skin: Normal Color, Warm/Dry Lymphatic: No Adenopathy Focused Exam Lactate Level 04/06/23 14:33: Lactic Acid Level 3.44*H 04/06/23 16:31: Lactic Acid Level 1.88 Lactic Acid Level Laboratory Tests Test 04/06/23 14:33 04/06/23 16:31 Lactic Acid Level 3.44 MMOL/L (0.50-2.00) *H 1.88 MMOL/L (0.50-2.00) Progress/Results/Core Measures Suspected Sepsis SIRS Temperature: Pulse: 90 Respiratory Rate: 40 Laboratory Tests 04/06/23 14:33: White Blood Count 13.2H Blood Pressure 157 /76 Mean: 103 04/06/23 14:33: Lactic Acid Level 3.44*H 04/06/23 16:31: Lactic Acid Level 1.88 Laboratory Tests 04/06/23 14:33: Creatinine 1.04, Platelet Count 366, Total Bilirubin 0.6 Results/Orders Lab Results Laboratory Tests Test 04/06/23 14:33 04/06/23 15:20 04/06/23 16:31 Range/Units White Blood Count 13.2 H 4.3-11.0 10^3/uL Red Blood Count 4.24 3.80-5.11 10^6/uL Hemoglobin 12.1 11.5-16.0 g/dL Hematocrit 36 35-52 % Mean Corpuscular Volume 86 80-99 fL Mean Corpuscular Hemoglobin 29 25-34 pg Mean Corpuscular Hemoglobin Concent 33 32-36 g/dL Red Cell Distribution Width 14.9 H 10.0-14.5 % Platelet Count 366 130-400 10^3/uL Mean Platelet Volume 9.3 9.0-12.2 fL Immature Granulocyte % (Auto) 0 % Neutrophils (%) (Auto) 70 42-75 % Lymphocytes (%) (Auto) 22 12-44 % Monocytes (%) (Auto) 6 0-12 % Eosinophils (%) (Auto) 2 0-10 % Basophils (%) (Auto) 1 0-10 % Neutrophils # (Auto) 9.2 H 1.8-7.8 10^3/uL Lymphocytes # (Auto) 2.9 1.0-4.0 10^3/uL Monocytes # (Auto) 0.8 0.0-1.0 10^3/uL Eosinophils # (Auto) 0.2 0.0-0.3 10^3/uL Basophils # (Auto) 0.1 0.0-0.1 10^3/uL Immature Granulocyte # (Auto) 0.0 0.0-0.1 10^3/uL D-Dimer 0.85 H 0.00-0.49 UG/ML Sodium Level 135 135-145 MMOL/L Potassium Level 3.3 L 3.6-5.0 MMOL/L Chloride Level 99 98-107 MMOL/L Carbon Dioxide Level 19 L 21-32 MMOL/L Anion Gap 17 H 5-14 MMOL/L Blood Urea Nitrogen 17 7-18 MG/DL Creatinine 1.04 0.60-1.30 MG/DL Estimat Glomerular Filtration Rate 59 BUN/Creatinine Ratio 16 Glucose Level 132 H 70-105 MG/DL Lactic Acid Level 3.44 *H 1.88 0.50-2.00 MMOL/L Calcium Level 10.3 H 8.5-10.1 MG/DL Corrected Calcium 10.1 8.5-10.1 MG/DL Magnesium Level 2.0 1.6-2.4 MG/DL Total Bilirubin 0.6 0.1-1.0 MG/DL Aspartate Amino Transf (AST/SGOT) 28 5-34 U/L Alanine Aminotransferase (ALT/SGPT) 32 0-55 U/L Alkaline Phosphatase 170 H 40-136 U/L Troponin I < 0.30 <0.30 NG/ML Pro-B-Type Natriuretic Peptide < 36.0 <125.0 PG/ML Total Protein 8.0 6.4-8.2 GM/DL Albumin 4.3 3.2-4.5 GM/DL Lipase 89 H 8-78 U/L Urine Color YELLOW Urine Clarity SL CLOUDY Urine pH 6.5 5-9 Urine Specific [place] 1.010 L 1.016-1.022 Urine Protein NEGATIVE NEGATIVE Urine Glucose (UA) NEGATIVE NEGATIVE Urine Ketones NEGATIVE NEGATIVE Urine Nitrite POSITIVE H NEGATIVE Urine Bilirubin NEGATIVE NEGATIVE Urine Urobilinogen 0.2 < = 1.0 MG/DL Urine Leukocyte Esterase NEGATIVE NEGATIVE Urine RBC (Auto) TRACE-I H NEGATIVE Urine RBC 5-10 H /HPF Urine WBC 10-25 H /HPF Urine Squamous Epithelial Cells 0-2 /HPF Urine Crystals NONE /LPF Urine Bacteria LARGE H /HPF Urine Casts NONE /LPF Urine Mucus NEGATIVE /LPF Urine Culture Indicated YES My Orders Orders - FADIA BURROWS MD Ekg Tracing (04/06/23 14:32) Cbc And Automated Diff (04/06/23 14:36) Comprehensive Metabolic Panel (04/06/23 14:36) Chest 1 View Ap/Pa Only (04/06/23 14:36) Magnesium (04/06/23 14:36) Ekg Tracing (04/06/23 14:36) Ed Iv/Invasive Line Start (04/06/23 14:36) Lactic Acid Analyzer (04/06/23 14:36) Troponin I Kings (04/06/23 14:36) Fibrin Degradation Products (04/06/23 14:36) Lorazepam Injection (Lorazepam Injection (04/06/23 14:45) Lipase (04/06/23 14:36) Ua Culture If Indicated (04/06/23 15:10) Ns Iv 1000 Ml (Ns Iv 1000 Ml) (04/06/23 15:15) Blood Culture (04/06/23 15:15) Probnp Fs (04/06/23 14:33) Urine Culture (04/06/23 15:20) Ct Angio Chest W (R/O Pe) (04/06/23 15:55) Ceftriaxone Iv/Im (Ceftriaxone Iv/Im) (04/06/23 16:00) Potassium Chloride (Tablet) (Potassium C (04/06/23 16:00) Iohexol Injection (Omnipaque 350 Mg/Ml 1 (04/06/23 16:45) Received Contrast (Hold Metformin- Contr (04/06/23 16:45) Ns (Ivpb) 100 Ml (Sodium Chloride 0.9% 1 (04/06/23 16:45) Medications Given in ED Current Medications Medications Dose Ordered Sig/Matthew Route Start Time Stop Time Status Last Admin Dose Admin Ceftriaxone Sodium 1000 mg/ Sodium Chloride 50 ml @ 100 mls/hr ONCE ONCE IV 04/06/23 16:00 04/06/23 16:29 DC 04/06/23 16:20 100 MLS/HR Iohexol 100 ml ONCE ONCE IV 04/06/23 16:45 04/06/23 16:50 DC 04/06/23 16:58 80 ML Lorazepam 0.5 mg ONCE ONCE IVP 04/06/23 14:45 04/06/23 14:46 DC 04/06/23 14:48 0.5 MG Potassium Chloride 20 meq ONCE ONCE PO 04/06/23 16:00 04/06/23 16:02 DC 04/06/23 16:20 20 MEQ Sodium Chloride 100 ml ONCE ONCE IV 04/06/23 16:45 04/06/23 16:50 DC 04/06/23 16:58 80 ML Vital Signs/I&O 04/06/23 04/06/23 14:28 14:28 Temp 36.7 Pulse 90 Resp 40 B/P (MAP) 157/76 (103) Pulse Ox 100 O2 Delivery Simple Mask Room Air Capillary Refill : Less Than 3 Seconds Blood Pressure Mean: 103 Progress Note : Progress Note Differential diagnosis: Panic attack, PE, sepsis, electrolyte imbalance Patient with complaint shortness of breath and mild flank pain and dizziness presented with hyperventilation and anxiety to ER. Patient had a stable vital sign. Patient treated with Ativan with improvement of her condition. CBC, CMP, BNP, troponin, UA, EKG, chest x-ray, D-dimer, lactic acid was ordered and reviewed by me and showed UTI, hypokalemia of 3.3, lactic acid of 3.4. D-dimer was mildly elevated and CTA chest was ordered and did not show acute finding. EKG and chest x-ray reviewed by me and was unremarkable. Patient treated with normal saline and Rocephin and repeat lactic acid was normal. Patient tolerated oral intake. Patient advised to continue home medication and prescription for Bactrim was given. Patient advised to follow-up with her PCP in 2 or 3 days and take high potassium foods. ECG Initial ECG Impression Date: Apr 06, 2023 Initial ECG Impression Time: 14:37 Initial ECG Rate: 87 Initial ECG Rhythm: Normal Sinus Initial ECG Intervals EKG interpreted by me and showed normal sinus rhythm at rate of 87, AR interval of 142 and QT of 360 and QTc of 405, QRS duration of 94, possible left atrial enlargement, possible right ventricular conduction delay, no acute ST and T wave elevation, multiple artifact. Diagnostic Imaging Diagonstic Imaging: Xray, CT Plain Films/CT/US/NM/MRI: chest Comments 1 view chest x-ray interpreted by me and did not show acute finding. 1 view chest x-ray interpreted by radiologist and reviewed by me and showed: [facility], [place] NAME: GRACY GRAY [employer] [facility] REC#: [id number] PT STATUS: REG ER : 1955 PHYSICIAN: FADIA BURROWS MD ADMIT DATE: 04/06/23/ER FS Signed Date of Exam:04/06/23 CHEST 1 VIEW AP/PA ONLY INDICATION: Shortness of breath. TECHNIQUE: Frontal chest obtained at 03:27 p.m. FINDINGS: Heart and mediastinal silhouette are normal in appearance. The lungs are clear. There is no pneumothorax or pleural fluid. Loop recorder over the chest wall is noted. IMPRESSION: No acute process in the chest. Dictated by: Dictated on workstation # [id number] Dict: 04/06/23 1543 Trans: 04/06/23 1554 [id number] Interpreted by: PIERRE MC MD Electronically signed by: PIERRE MC MD 04/06/[address] chest interpreted by radiologist and reviewed by me and did not show acute finding: [facility] [place], [place] NAME: GRACY GRAY [facility] REC#: [id number] PT STATUS: REG ER : 1955 PHYSICIAN: FADIA BURROWS MD ADMIT DATE: 04/06/23/ER FS Signed Date of Exam:04/06/23 CT ANGIO CHEST W (R/O PE) EXAMINATION: CT chest, utilizing PE protocol TECHNIQUE: Precontrast images were obtained of the chest utilizing PE protocol after contrast intravenous administration. Auto Exposure Controls were utilized during the CT exam to meet ALARA standards for radiation dose reduction. HISTORY: Shortness of breath, elevated D-dimer COMPARISON: Chest radiograph 04/06/2023. FINDINGS: Normal caliber pulmonary artery. No acute pulmonary emboli. Normal caliber aorta. There is no edema or pneumonia. No pleural effusion. No pneumothorax. No suspicious nodules. There is no axillary or supraclavicular lymphadenopathy. There is no mediastinal lymphadenopathy. Heart size is normal. There are mild coronary artery calcifications. No pericardial effusion. Aorta is normal in caliber. Included views of the abdomen demonstrates small hiatal hernia. IMPRESSION: No acute pulmonary emboli. No acute chest findings. Dictated by: Dictated on workstation # [id number] Dict: 04/06/23 170 Trans: 04/06/231703 [facility] [place] [id number] Interpreted by: JODY PASCUAL DO Electronically signed by: JODY PASCUAL DO 04/06/231703 Departure Impression Primary Impression: Urinary tract infection Qualified Codes: N39.0 - Urinary tract infection, site not specified Additional Impressions: Panic attack Hyperventilation Hypokalemia Elevated d-dimer Disposition: 01 HOME, SELF-CARE Condition: Improved Departure-Patient Inst. Decision time for Depature: 17:19 Referrals: BREANNA VERGARA APRN (PCP) Primary Care Physician [facility] (Family) Primary Care Physician Patient Instructions: Hyperventilation, High Potassium Diet, Urinary Tract Infection, Adult ED, Hypokalemia (DC), Panic Attack ED Add. Discharge Instructions: Drink plenty of liquids Follow-up with your primary care physician in 2 or 3 days Continue home medication Return to ER as needed All discharge instructions reviewed with patient and/or family. Voiced understanding. Scripts Sulfamethoxazole/Trimethoprim (Bactrim Ds Tablet) 800 Mg-160 Mg Tablet 1 EACH PO BID, #10 TAB Prov: FADIA BURROWS MD 04/06/23 FADIA BURROWS MD Apr 06, 2023 15:14
[2023-04-06] MEDS ORDERED: NS IV 1000 ML 1,000 ML IV SCH (15:15)
[2023-04-06 15:16] LABS: CARBON DIOXIDE 19 MMOL/L (21-32); CHLORIDE 99 MMOL/L (98-107); POTASSIUM 3.3 MMOL/L (3.6-5.0); SODIUM 135 MMOL/L (135-145)
[2023-04-06 15:17] LABS: ALANINE AMINOTRANSFERASE 32 U/L (0-55); ALBUMIN 4.3 GM/DL (3.2-4.5); ALKALINE PHOSPHATASE 170 U/L (40-136); BILIRUBIN,TOTAL 0.6 MG/DL (0.1-1.0); BUN/CREATININE RATIO 16; CALCIUM 10.3 MG/DL (8.5-10.1); CREATININE SERUM 1.04 MG/DL (0.60-1.30); GFR ESTIMATED 59; GLUCOSE 132 MG/DL (70-105); LIPASE 89 U/L (8-78)
[2023-04-06 15:25] LABS: BILIRUBIN,URINE NEGATIVE (NEGATIVE); CLARITY,URINE SL CLOUDY; COLOR,URINE YELLOW; GLUCOSE, URINE (UA) NEGATIVE (NEGATIVE); KETONES,URINE NEGATIVE (NEGATIVE); LEUKOCYTE ESTERASE ,URINE NEGATIVE (NEGATIVE); NITRITE,URINE POSITIVE (NEGATIVE); PH,URINE 6.5 (5-9); PROTEIN,URINE NEGATIVE (NEGATIVE)
[2023-04-06 15:36] LABS: BACTERIA,URINE LARGE /HPF; SQUAMOUS EPITHELIAL CELL,UR 0-2 /HPF
--- NOTE | 2023-04-06 15:49 | Diagnostic Imaging Report ---
INDICATION: Shortness of breath. TECHNIQUE: Frontal chest obtained at 03:27 p.m. FINDINGS: Heart and mediastinal silhouette are normal in appearance. The lungs are clear. There is no pneumothorax or pleural fluid. Loop recorder over the chest wall is noted. IMPRESSION: No acute process in the chest. Dictated by: Dictated on workstation # [id number]
[2023-04-06] MEDS ORDERED: cefTRIAXone IV/IM 1,000 MG in NS (IVPB) 50 ML 50 ML IV ONE (16:00)
[2023-04-06] MEDS ORDERED: POTASSIUM CHLORIDE 20 MEQ TABLET PO ONE (16:00)
[2023-04-06] MEDS ORDERED: NS 100 ML (IVPB) BAG IV ONE (16:45)
[2023-04-06] MEDS ORDERED: HOLD METFORMIN - RECEIVED CONTRAST 20 ML VIAL IV SCH (16:45)
[2023-04-06] MEDS ORDERED: IOHEXOL 350 MG/ML 100 ML (OMNIPAQUE 350) VIAL IV ONE (16:45)
--- NOTE | 2023-04-06 17:05 | Diagnostic Imaging Report ---
EXAMINATION: CT chest, utilizing PE protocol TECHNIQUE: Precontrast images were obtained of the chest utilizing PE protocol after contrast intravenous administration. Auto Exposure Controls were utilized during the CT exam to meet ALARA standards for radiation dose reduction. HISTORY: Shortness of breath, elevated D-dimer COMPARISON: Chest radiograph 04/06/2023. FINDINGS: Normal caliber pulmonary artery. No acute pulmonary emboli. Normal caliber aorta. There is no edema or pneumonia. No pleural effusion. No pneumothorax. No suspicious nodules. There is no axillary or supraclavicular lymphadenopathy. There is no mediastinal lymphadenopathy. Heart size is normal. There are mild coronary artery calcifications. No pericardial effusion. Aorta is normal in caliber. Included views of the abdomen demonstrates small hiatal hernia. IMPRESSION: No acute pulmonary emboli. No acute chest findings. Dictated by: Dictated on workstation # [id number]
[2023-04-06] MEDS ORDERED: SULF-221 PO (17:21)
== END 2023-04-06 17:30 | disposition home or self-care (01) ==
LOC: EDUNIT# 14:23 → ER FS 14:24
DX: N39.0 Urinary tract infection, site not specified (principal); F41.0 Panic disorder [episodic paroxysmal anxiety]; R06.4 Hyperventilation; E87.6 Hypokalemia; R79.89 Other specified abnormal findings of blood chemistry; E66.9 Obesity, unspecified; I48.91 Unspecified atrial fibrillation; Z68.45 Body mass index [BMI] 70 or greater, adult; Z79.01 Long term (current) use of anticoagulants
CPT/HCPCS: 36415; 71045; 71275; 80053; 81000; 83605; 83690; 83735; 83880; 84484; 85025; 85379; 87040; 87088; 93005; Q9967